=== PATIENT | female | born 1945 | race Caucasian/White ===

== ENCOUNTER 2019-05-14 22:09 | Outpatient (CLI) | payer MEDICARE, OTHER | END 2019-05-14 22:10 | disposition critical access hospital (66) | LOC: EMS 22:09 | PROVIDERS: ATTEND Surgery | DX: M54.2 Cervicalgia (principal); W18.39XA Other fall on same level, initial encounter; Y93.E2 Activity, laundry; Y92.008 Other place in unspecified non-institutional (private) residence as the place of occurrence of the external cause | CPT/HCPCS: A0425; A0429 ==

== ENCOUNTER 2019-05-14 22:28 | Emergency (ER) | payer MEDICARE, OTHER ==
[2019-05-14] MEDS ORDERED: HYDROcod/ACETAM 5/325 MG TABLET PO STA (22:38)
--- NOTE | 2019-05-14 22:42 | ED Physician Documentation ---
PD HPI Fall - Stated complaint Stated Complaint: FALL/HEAD PAIN - Chief complaint Chief Complaint: Trauma Hd/Nk - History obtained from History obtained from: Patient, Family, EMS - History of Present Illness Mechanism of injury: Lost balance (She was sitting on her walker folding laundry and lost balance and fell backwards. She struck the back of her head. She is complaining of pain in the neck and upper thoracic area. 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 No: LOC, AMS, Weakness, Paresthesias Worsens with: Movement, Palpation Contributing factors: Anticoagulated. No: Intoxicated Recently seen: Not recently seen Review of Systems Constitutional: denies: Fever, Chills Eyes: denies: Loss of vision, Decreased vision Nose: denies: Rhinorrhea / runny nose, Congestion Throat: denies: Sore throat Cardiac: denies: Chest pain / pressure Respiratory: denies: Cough GI: denies: Abdominal Pain Skin: denies: Abrasion (s), Laceration (s) Musculoskeletal: reports: Neck pain, Back pain (upper thoracic area) Neurologic: denies: Focal weakness, Numbness, Altered mental status PD PAST MEDICAL HISTORY - Past Medical History Cardiovascular: Atrial fibrillation Respiratory: None Neuro: None Endocrine/Autoimmune: None - Present Medications Home Medications: Ambulatory Orders Medication Instructions Recorded Confirmed Hydrocodone/Acetaminophen [[place] 1 each PO Q6H PRN #15 tablet 05/14/19 5-325 Tablet] Methocarbamol [Robaxin] 500 mg PO TID PRN #20 tablet 05/14/19 - Allergies Allergies/Adverse Reactions: Allergies Allergy/AdvReac Type Severity Reaction Status Date / Time azithromycin Allergy Rash Verified 05/14/19 22:50 glyburide Allergy Edema Verified 05/14/19 22:50 levofloxacin Allergy Hives Verified 05/14/19 22:50 lisinopril Allergy Respiratory Verified 05/14/19 22:50 losartan Allergy Hives Verified 05/14/19 22:50 metformin Allergy Cramps Verified 05/14/19 22:50 Sulfa (Sulfonamide Allergy Rash Verified 05/14/19 22:50 Antibiotics) triamcinolone Allergy Itching Verified 05/14/19 22:50 trimethoprim Allergy Rash Verified 05/14/19 22:50 yellow dye Allergy Rash Verified 05/14/19 22:50 PD ED PE NORMAL - Vitals Vital signs reviewed: Yes - General General: Alert and oriented X 3, No acute distress (appears uncomfortable due to collar more than injury per se. ), Well developed/nourished - HEENT HEENT: PERRL, EOMI, Pharynx benign, Other (back of head with swelling and tednerness right occiput. It is not tense, but is swollen. No lacerations. ) - Neck Neck: Supple, no meningeal sign, No adenopathy, Other (some tenderness mid to lower cervical area down to upper thoracic, more to the right muscles. 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 ), See rad report PD MEDICAL DECISION MAKING - ED course Complexity details: reviewed results (NO ICH and no fractures), re-evaluated patient (She is feeling much improved with time and just PO meds. ), considered differential (Low suspicion for fracture/spine injury. Will get CTs to ensure okay. To get CT head, given she is on anticoag. ), d/w patient Departure - Departure Disposition: 01 Home, Self Care Clinical Impression: Anticoagulant long-term use Fall, accidental Qualifiers: Encounter type: initial encounter Qualified Code(s): W19.XXXA - Unspecified fall, initial encounter Contusion of occipital region of scalp Qualifiers: Encounter type: initial encounter Qualified Code(s): S00.03XA - Contusion of sc alp, initial encounter Neck muscle strain Qualifiers: Encounter type: initial encounter Qualified Code(s): S16.1XXA - Strain of muscle, fascia and tendon at neck level, initial encounter Condition: Stable Record reviewed to determine appropriate education?: Yes Instructions: ED Contusion Scalp, ED Sprain Strain Neck Prescriptions: Hydrocodone/Acetaminophen [[place] 5-325 Tablet] 1 each PO Q6H PRN #15 tablet PRN Reason: Pain Methocarbamol [Robaxin] 500 mg PO TID PRN #20 tablet PRN Reason: Spasms Comments: Tylenol 650 mg 4 times a day for the next several days for pain. Add hydrocodone if needed for worse pain. You likely be sore and stiff over the next few days from the injury. Your scan pictures are good without any signs of fracture or intracranial bleeding. The hematoma in the scalp should decrease slowly over several days to a couple of weeks. Recheck if it is not resolved over a week or 2 Discharge Date/Time: 05/15/19 00:02
--- NOTE | 2019-05-14 23:22 | CT Report ---
Reason: fell and hit head/neck; on Eliquis Procedure Date: 05/14/2019 Accession Number: [id number] / [id number] Procedure: CT - HEAD WO CPT Code: FULL RESULT: EXAM: CT HEAD EXAM DATE: 05/14/2019 11:07 PM CLINICAL HISTORY: Fell and hit head/neck; on Eliquis. COMPARISON: CERVICAL SPINE W/O 05/14/2019 10:56 PM. TECHNIQUE: Multiaxial CT images were obtained from the foramen magnum to the vertex. Reformats: Sagittal and coronal. IV contrast: None. In accordance with CT protocol optimization, one or more of the following dose reduction techniques were utilized for this exam: automated exposure control, adjustment of mA and/or KV based on patient size, or use of iterative reconstructive technique. FINDINGS: Parenchyma: No intraparenchymal hemorrhage. No evidence of mass, midline shift or CT findings of acute infarction. Cortes-white differentiation is distinct. Diffuse mild chronic microangiopathic white matter changes are evident. Extraaxial Spaces: Normal for age. No subdural or epidural collections identified. Ventricles: The ventricles and cortical sulci are enlarged, consistent with age-related tissue loss. Sinuses: Imaged paranasal sinuses, orbits, and mastoids show no significant abnormality. Bones: No evidence of fracture or calvarial defect. Other: Small right occipital scalp hematoma. IMPRESSION: Mild senescent changes without evidence of acute intracranial abnormality. RADIA
--- NOTE | 2019-05-14 23:26 | CT Report ---
Reason: fell and hit head/neck; on Eliquis Procedure Date: 05/14/2019 Accession Number: [id number] / [id number] Procedure: CT - CERVICAL SPINE WO CPT Code: FULL RESULT: EXAM: CT CERVICAL SPINE WITHOUT CONTRAST DATE: 05/14/2019 11:07 PM. HISTORY: Fell and hit head/neck; pain, on Eliquis. COMPARISONS: None. TECHNIQUE: Thin-section axial images were acquired of the cervical spine without contrast. Post-processing: Coronal and sagittal reformats. Other: None. In accordance with CT protocol optimization, one or more of the following dose reduction techniques were utilized for this exam: automated exposure control, adjustment of mA and/or KV based on patient size, or use of iterative reconstructive technique. FINDINGS: Alignment: No scoliosis or spondylolisthesis. Bones: Osteopenia. No acute fracture seen. Interspace Levels/Facets: C1-C2: Degenerative changes between the anterior arch of C1 and the odontoid. C2-C3: Mild degenerative disk disease with mild broad-based disk bulge. Degenerative joint disease in the right facet joint. Mild right foraminal stenosis. C3-C4: Moderate degenerative disk disease. Bilateral uncovertebral joint spurring. C4-C5: Mild degenerative disk disease. C5-C6: Moderate to severe degenerative disk disease. Posterior disk osteophyte complex contacting the cord. Bilateral uncovertebral joint osteophytes with severe bilateral foraminal stenosis. C6-C7: Moderate to severe degenerative disk disease. Posterior disk osteophyte complex contacting the cord, left worse than right. Bilateral uncovertebral joint spurring with mild right and moderate to severe left foraminal stenosis. C7-T1: Moderate to severe degenerative disk disease. Posterior disk osteophyte complex contacting the cord. Bilateral uncovertebral joint spurring with moderate right and severe left foraminal stenosis. Musculature: Atrophy consistent with age. Other: No prevertebral soft tissue swelling. The lung apices are clear. Tracheomalacia is noted. IMPRESSION: 1. No acute cervical spine abnormality. 2. Multilevel degenerative disk disease and degenerative joint disease as noted. RADIA
--- NOTE | 2019-05-14 23:29 | CT Report ---
Reason: fell and hit head/neck; on Eliquis Procedure Date: 05/14/2019 Accession Number: [id number] / [id number] Procedure: CT - THORACIC SPINE WO CPT Code: FULL RESULT: EXAM: CT THORACIC SPINE WITHOUT CONTRAST EXAM DATE: 05/14/2019 11:07 PM. CLINICAL HISTORY: Pain after injury. On blood thinner. COMPARISONS: None. TECHNIQUE: Thin-section axial images were acquired of the thoracic spine without contrast. Post-processing: Coronal and sagittal reformats. Other: None. In accordance with CT protocol optimization, one or more of the following dose reduction techniques were utilized for this exam: automated exposure control, adjustment of mA and/or KV based on patient size, or use of iterative reconstructive technique. FINDINGS: Alignment: Unremarkable. Bones: Osteopenia. No acute fracture seen. Disk Levels/Facets: Mild multilevel degenerative disk disease. Bulky bridging osteophytes at multiple levels, right greater than left. Facet joints appear intact. Other: The visualized lungs appear clear. Coronary artery calcifications. IMPRESSION: 1. Osteopenia and degenerative changes. 2. No acute thoracic spine abnormality. RADIA
[2019-05-15 00:13] VITALS: BP 117/76
== END 2019-05-15 00:02 | disposition home or self-care (01) ==
LOC: EDBD → ED 22:28
DX: S16.1XXA Strain of muscle, fascia and tendon at neck level, initial encounter (principal); S00.03XA Contusion of scalp, initial encounter; M54.6 Pain in thoracic spine; W17.89XA Other fall from one level to another, initial encounter; Y93.E2 Activity, laundry; Y92.29 Other specified public building as the place of occurrence of the external cause; M47.812 Spondylosis without myelopathy or radiculopathy, cervical region; M50.31 Other cervical disc degeneration, high cervical region; M85.88 Other specified disorders of bone density and structure, other site; I48.91 Unspecified atrial fibrillation; Z79.01 Long term (current) use of anticoagulants
CPT/HCPCS: 70450; 72125; 72128; 99283; 99284; A9270

== ENCOUNTER 2019-05-15 12:41 | Outpatient (CLI) | payer MEDICARE, OTHER | END 2019-05-15 12:42 | disposition EMS.NT | LOC: EMS 12:41 | PROVIDERS: ATTEND Surgery | DX: R51 Headache (principal) ==

== ENCOUNTER 2019-06-21 16:32 | Outpatient (CLI) | payer MEDICARE, OTHER ==
[2019-06-21 17:01] LABS: BASOPHILS # (AUTO) 0.1 10^3/uL (0.0-0.1); BASOPHILS % (AUTO) 0.5 %; EOSINOPHILS # (AUTO) 0.1 10^3/uL (0.0-0.7); EOSINOPHILS % (AUTO) 0.9 %; HGB - HEMOGLOBIN 16.1 g/dL (12.0-16.0); LYMPHOCYTES # (AUTO) 2.3 10^3/uL (1.5-3.5); LYMPHOCYTES % (AUTO) 21.9 %; MEAN CORPUSCULAR HEMOGLOBIN 31.9 pg (27.0-31.0); MEAN CORPUSCULAR HGB CONC 32.3 g/dL (32.0-36.0); MEAN CORPUSCULAR VOLUME 98.8 fL (81.0-99.0); NEUTROPHILS # (AUTO) 7.2 10^3/uL (1.5-6.6); NEUTROPHILS % (AUTO) 67.1 %; PLT - PLATELET COUNT 224 10^3/uL (130-450); RED BLOOD COUNT 5.05 10^6/uL (4.20-5.40); RED CELL DISTRIBUTION WIDTH 13.2 % (12.0-15.0); WHITE BLOOD COUNT 10.7 x10^3/uL (4.8-10.8)
[2019-06-21 17:12] LABS: CREATININE,URINE 106.8 mg/dL; MICROALBUM/CREATININE RATIO,UR 16.9 ug/mg (<30.0); MICROALBUMIN,URINE 1.8 mg/dL (0-300.0)
[2019-06-21 17:37] LABS: HB2 TOTAL 15.7 g/dL; HEMOGLOBIN A1C 1.3 g/dL; HEMOGLOBIN A1C % 9.7 % (4.6-6.2)
[2019-06-21 17:40] LABS: BUN - BLOOD UREA NITROGEN 27 mg/dL (6-20); CALCIUM 9.2 mg/dL (8.5-10.3); CARBON DIOXIDE - CO2 28 mmol/L (21-32); CHLORIDE 99 mmol/L (101-111); CHOL/HDL RATIO 2.5 (<4.4); CHOLESTEROL 114 mg/dL; CREATININE 1.1 mg/dL (0.4-1.0); GFR - MDRD 49 (>89); GLUCOSE 244 mg/dL (70-100); HDL CHOLESTEROL 46 mg/dL; LDL CHOLESTEROL,CALCULATED 55 mg/dL; LDL/HDL RATIO 1.2 (<4.4); SODIUM 140 mmol/L (135-145); VLDL CHOLESTEROL 13 mg/dL
[2019-06-23 16:45] LABS: FREE T4 (FREE THYROXINE) 0.53 ng/dL (0.58-1.64)
== END 2019-06-21 16:33 | disposition home or self-care (01) ==
LOC: LAB 16:32
PROVIDERS: ATTEND Family Medicine
DX: I50.9 Heart failure, unspecified (principal); E78.5 Hyperlipidemia, unspecified; E11.9 Type 2 diabetes mellitus without complications; E03.9 Hypothyroidism, unspecified
CPT/HCPCS: 36415; 80048; 80061; 82043; 82570; 83036; 83721; 83880; 84439; 84443; 85025

== ENCOUNTER 2019-09-16 14:20 | Outpatient (CLI) | payer MEDICARE, OTHER ==
[2019-09-16 15:11] LABS: BASOPHILS % (AUTO) 0.5 %; EOSINOPHILS # (AUTO) 0.2 10^3/uL (0.0-0.7); EOSINOPHILS % (AUTO) 2.1 %; HGB - HEMOGLOBIN 15.5 g/dL (12.0-16.0); LYMPHOCYTES # (AUTO) 1.5 10^3/uL (1.5-3.5); LYMPHOCYTES % (AUTO) 19.7 %; MEAN CORPUSCULAR HEMOGLOBIN 31.2 pg (27.0-31.0); MEAN CORPUSCULAR VOLUME 97.6 fL (81.0-99.0); MEAN PLATELET VOLUME 10.7 fL (7.9-10.8); MONOCYTES # (AUTO) 0.9 10^3/uL (0.0-1.0); MONOCYTES % (AUTO) 11.2 %; NEUTROPHILS # (AUTO) 5.1 10^3/uL (1.5-6.6); NEUTROPHILS % (AUTO) 66.1 %; PLT - PLATELET COUNT 226 10^3/uL (130-450); RED BLOOD COUNT 4.97 10^6/uL (4.20-5.40); RED CELL DISTRIBUTION WIDTH 13.1 % (12.0-15.0); WHITE BLOOD COUNT 7.8 x10^3/uL (4.8-10.8)
[2019-09-16 15:31] LABS: ALBUMIN 3.8 g/dL (3.2-5.5); CALCIUM 9.2 mg/dL (8.5-10.3); CREATININE 1.2 mg/dL (0.4-1.0); TOTAL PROTEIN 7.8 g/dL (6.7-8.2)
[2019-09-16 15:37] LABS: HEMOGLOBIN A1C 1.36 g/dL; HEMOGLOBIN A1C % 9.9 % (4.6-6.2)
[2019-09-16 16:13] LABS: FREE T4 (FREE THYROXINE) 0.65 ng/dL (0.58-1.64)
[2019-09-17 12:27] LABS: HEPATITIS C ANTIBODY NON-REACTIVE (NON-REACTIVE)
== END 2019-09-16 14:21 | disposition home or self-care (01) ==
LOC: LAB 14:20
PROVIDERS: ATTEND Physician Assistant
DX: E11.22 Type 2 diabetes mellitus with diabetic chronic kidney disease (principal); N18.3 Chronic kidney disease, stage 3 (moderate); E03.9 Hypothyroidism, unspecified; L40.0 Psoriasis vulgaris
CPT/HCPCS: 36415; 80053; 81599; 83036; 84439; 84443; 85025; 86317; 86803; 87389

== ENCOUNTER 2019-10-03 14:22 | Outpatient (CLI) | payer MEDICARE, OTHER ==
[2019-10-03 15:35] LABS: HGB - HEMOGLOBIN 16.1 g/dL (12.0-16.0); MEAN CORPUSCULAR HEMOGLOBIN 31.9 pg (27.0-31.0); MEAN CORPUSCULAR VOLUME 96.6 fL (81.0-99.0); MEAN PLATELET VOLUME 10.8 fL (7.9-10.8); RED BLOOD COUNT 5.05 10^6/uL (4.20-5.40); RED CELL DISTRIBUTION WIDTH 13.1 % (12.0-15.0); WHITE BLOOD COUNT 7.5 x10^3/uL (4.8-10.8)
[2019-10-03 15:51] LABS: CREATININE 1.1 mg/dL (0.4-1.0)
== END 2019-10-03 14:23 | disposition home or self-care (01) ==
LOC: LAB 14:22
PROVIDERS: ATTEND Physician Assistant
DX: I50.9 Heart failure, unspecified (principal); L40.0 Psoriasis vulgaris
CPT/HCPCS: 36415; 80048; 81599; 83880; 85027; 86480

== ENCOUNTER 2020-01-25 11:14 | Outpatient (CLI) | payer MEDICARE, OTHER | END 2020-01-26 11:15 | disposition critical access hospital (66) | LOC: EMS 11:14 | PROVIDERS: ATTEND Surgery | DX: R06.00 Dyspnea, unspecified (principal); R07.89 Other chest pain | CPT/HCPCS: A0425; A0429 ==

== ENCOUNTER 2020-01-25 11:29 | Emergency (ER) | payer MEDICARE, OTHER ==
[2020-01-25] MEDS ORDERED: FUROSEMIDE 40 MG/4 ML VIAL IVP STA (12:22)
--- NOTE | 2020-01-25 12:57 | XRAY Report ---
PROCEDURE: Chest 1 View X-Ray INDICATIONS: soa TECHNIQUE: One view of the chest was acquired. COMPARISON: None FINDINGS: Surgical changes and devices: None. Lungs and pleura: No pleural effusions or pneumothorax. Lungs are clear. Mediastinum: Mediastinal contours appear normal. Heart size is normal. Bones and chest wall: No suspicious bony lesions. Overlying soft tissues appear unremarkable. IMPRESSION: No evidence acute pulmonary process. Reviewed by: Trever Busby MD on 01/25/2020 11:55 AM [facility]ATE Approved by: Trever Busby MD on 01/25/2020 11:55 AM CUATE Station ID: [id number]
[2020-01-25 13:10] LABS: BASOPHILS % (AUTO) 0.4 %; EOSINOPHILS # (AUTO) 0.2 10^3/uL (0.0-0.7); EOSINOPHILS % (AUTO) 2.2 %; HGB - HEMOGLOBIN 14.3 g/dL (12.0-16.0); LYMPHOCYTES # (AUTO) 1.8 10^3/uL (1.5-3.5); LYMPHOCYTES % (AUTO) 25.7 %; MEAN CORPUSCULAR HEMOGLOBIN 30.9 pg (27.0-31.0); MEAN CORPUSCULAR HGB CONC 31.8 g/dL (32.0-36.0); MEAN CORPUSCULAR VOLUME 97.2 fL (81.0-99.0); MEAN PLATELET VOLUME 11.2 fL (7.9-10.8); MONOCYTES # (AUTO) 0.7 10^3/uL (0.0-1.0); MONOCYTES % (AUTO) 9.5 %; NEUTROPHILS # (AUTO) 4.2 10^3/uL (1.5-6.6); NEUTROPHILS % (AUTO) 61.6 %; PLT - PLATELET COUNT 153 10^3/uL (130-450); RED BLOOD COUNT 4.63 10^6/uL (4.20-5.40); RED CELL DISTRIBUTION WIDTH 13.1 % (12.0-15.0); WHITE BLOOD COUNT 6.8 x10^3/uL (4.8-10.8)
--- NOTE | 2020-01-25 13:13 | ED Physician Documentation ---
PD HPI DYSPNEA - Stated complaint Stated Complaint: CHF - Chief complaint Chief Complaint: Cardiac - History obtained from History obtained from: Patient - History of Present Illness Timing - onset: How many weeks ago (3) Timing - onset during: Rest Timing - duration: Weeks (3) Timing - details: Gradual onset, Still present, Waxing and waning Improved by: Lasix, Rest, Sitting up Worsened by: Exertion, Laying flat, Coughing Associated symptoms: Cough, Bilateral edema. No: Fever Similar symptoms before: Diagnosis (CHF) Recently seen: Not recently seen - Additional information Additional information: 72-year-old female with a history of congestive heart failure and type 2 diabetes is on Jardiance and torsemide. She has had increased swelling in her extremities and increased dyspnea. She has some paroxysmal nocturnal dyspnea which has worsened over the past 3 weeks. Today she had an episode of dyspnea and called the ambulance. In route she was administered a DuoNeb treatment with minimal improvement she was placed on the oxygen she arrives to the emergency department feeling the ease of breathing.She indicates that her legs are a bit more swollen than usual they are red but but not different from normal over the past 6 months. She does not otherwise feel ill. Review of Systems Constitutional: denies: Fever, Chills, Myalgias Eyes: denies: Decreased vision Ears: denies: Ear pain Nose: denies: Rhinorrhea / runny nose, Congestion Throat: denies: Sore throat Cardiac: denies: Chest pain / pressure, Palpitations Respiratory: reports: Dyspnea. denies: Cough, Wheezing GI: denies: Abdominal Pain, Nausea, Vomiting : reports: Frequency. denies: Dysuria Musculoskeletal: reports: Extremity swelling. denies: Neck pain, Back pain, Extremity pain Neurologic: denies: Generalized weakness, Focal weakness, Numbness PD PAST MEDICAL HISTORY - Past Medical History Past Medical History: Yes Cardiovascular: Atrial fibrillation Respiratory: None Neuro: None Endocrine/Autoimmune: None GI: GERD HEENT: None - Past Surgical History Past Surgical History: Yes - Present Medications Home Medications: Ambulatory Orders Medication Instructions Recorded Confirmed Hydrocodone/Acetaminophen [[place] 1 each PO Q6H PRN #15 tablet 05/14/19 01/25/20 5-325 Tablet] methocarbamoL [Robaxin] 500 mg PO TID PRN #20 tablet 05/14/19 01/25/20 Empagliflozin [Jardiance] 1 tab PO DAILY 01/25/20 01/25/20 Furosemide [Lasix] 40 mg PO DAILY #20 tablet 01/25/20 Gabapentin 2 cap PO BID 01/25/20 01/25/20 Insulin Aspart (Vial) [NovoLOG 1 unit SQ PRN PRN 01/25/20 01/25/20 (VIAL FOR ED USE)] Metoprolol Succinate 1 tab PO DAILY 01/25/20 01/25/20 Montelukast [Singulair] 1 tab PO DAILY PM 01/25/20 01/25/20 Omeprazole 1 cap PO DAILY 01/25/20 01/25/20 Oxybutynin Chloride [Oxybutynin 1 tab PO DAILY 01/25/20 01/25/20 Chloride ER] Potassium Citrate [Potassium 2 tab PO DAILY 01/25/20 01/25/20 Citrate ER] Thyroid,Pork [[place] Thyroid] 1 tab PO DAILY 01/25/20 01/25/20 Torsemide 1 tab PO DAILY 01/25/20 01/25/20 methocarbamoL [Methocarbamol] 1 tab PO PRN PRN 01/25/20 01/25/20 - Allergies Allergies/Adverse Reactions: Allergies Allergy/AdvReac Type Severity Reaction Status Date / Time azithromycin Allergy Rash Verified 01/25/20 11:42 glyburide Allergy Edema Verified 01/25/20 11:42 levofloxacin Allergy Hives Verified 01/25/20 11:42 lisinopril Allergy Respiratory Verified 01/25/20 11:42 losartan Allergy Hives Verified 01/25/20 11:42 metformin Allergy Cramps Verified 01/25/20 11:42 Sulfa (Sulfonamide Allergy Rash Verified 01/25/20 11:42 Antibiotics) triamcinolone Allergy Itching Verified 01/25/20 11:42 trimethoprim Allergy Rash Verified 01/25/20 11:42 yellow dye Allergy Rash Verified 01/25/20 11:42 - Social History Does the pt smoke?: No Smoking Status: Never smoker Does the pt drink ETOH?: No Does the pt have substance abuse?: No - Immunizations Immunizations are current?: Yes - POLST Patient has POLST: No PD ED PE NORMAL - Vitals Vital signs reviewed: Yes (hypertensive) - HEENT HEENT: Atraumatic, PERRL, EOMI - Neck Neck: Supple, no meningeal sign - Cardiac Cardiac: RRR, No murmur - Respiratory Respiratory: No respiratory distress, Clear bilaterally - Abdomen Abdomen: Soft, Non tender, Other (obese) - Back Back: No CVA TTP, No spinal TTP - Derm Derm: Normal color, Warm and dry, No rash - Extremities Extremities: No deformity, No calf tenderness / cord, Other (There is pitting edema bilaterally to the upper calf and there is erythema across the lower margins of the calves bilaterally which is hyperemic and blanching.) - Neuro Neuro: Alert and oriented X 3, 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, No motor deficit, No sensory deficit, Normal speech Eye Opening: Spontaneous Motor: Obeys Commands Verbal: Oriented GCS Score: 15 - Psych Psych: Normal mood, Normal affect Results - Vitals Vitals: Vital Signs - 24 hr 01/25/20 01/25/20 01/25/20 11:26 11:39 14:54 Temperature 36.4 C L Heart Rate 66 61 58 L Respiratory 24 22 16 Rate Blood Pressure 156/57 H 156/67 H 150/68 H O2 Saturation 97 96 97 Oxygen O2 Source Room air - EKG (time done) 1136 Rate: Rate (enter#) (61) Rhythm: Other (sinus arrythmia) QRS: Low voltage Ischemia: Non specific changes (minimal ST depression V4/5) Compare to prior EKG: Old EKG unavailable Computer interpretation: Agree with computer - Labs Labs: Laboratory Tests 01/25/20 01/25/20 01/25/20 13:00 13:00 13:00 WBC 6.8 RBC 4.63 Hgb 14.3 Hct 45.0 MCV 97.2 MCH 30.9 MCHC 31.8 L RDW 13.1 Plt Count 153 MPV 11.2 H Neut # (Auto) 4.2 Lymph # (Auto) 1.8 [place] # (Auto) 0.7 Eos # (Auto) 0.2 Baso # (Auto) 0.0 Absolute Nucleated RBC 0.00 Nucleated RBC % 0.0 VBG pH VBG pCO2 VBG pO2 VBG HCO3 VBG Total CO2 VBG O2 Saturation VBG Base Excess Sodium 136 Potassium 4.0 Chloride 99 L Carbon Dioxide 26 Anion Gap 11.0 BUN 21 H Creatinine 0.9 Estimated GFR (MDRD) 62 L Glucose 214 H Lactic Acid Calcium 9.1 Total Bilirubin 2.3 H AST 22 ALT 17 Alkaline Phosphatase 96 Troponin I High Sens B-Natriuretic Peptide 112 H Total Protein 7.5 Albumin 3.4 Globulin 4.1 Albumin/Globulin Ratio 0.8 L Lipase 27 Urine Color Urine Clarity Urine pH Ur Specific [place] Urine Protein Urine Glucose (UA) Urine Ketones Urine Occult Blood Urine Nitrite Urine Bilirubin Urine Urobilinogen Ur Leukocyte Esterase Ur Microscopic Review Urine Culture Comments Serum Ketones 01/25/20 01/25/20 01/25/20 13:00 13:00 13:08 WBC RBC Hgb Hct MCV MCH MCHC RDW Plt Count MPV Neut # (Auto) Lymph # (Auto) [place] # (Auto) Eos # (Auto) Baso # (Auto) Absolute Nucleated RBC Nucleated RBC % VBG pH VBG pCO2 VBG pO2 VBG HCO3 VBG Total CO2 VBG O2 Saturation VBG Base Excess Sodium Potassium Chloride Carbon Dioxide Anion Gap BUN Creatinine Estimated GFR (MDRD) Glucose Lactic Acid 1.7 Calcium Total Bilirubin AST ALT Alkaline Phosphatase Troponin I High Sens 7.6 B-Natriuretic Peptide Total Protein Albumin Globulin Albumin/Globulin Ratio Lipase Urine Color YELLOW Urine Clarity CLEAR Urine pH 6.0 Ur Specific [place] 1.015 Urine Protein NEGATIVE Urine Glucose (UA) >=1000 H Urine Ketones 15 H Urine Occult Blood NEGATIVE Urine Nitrite NEGATIVE Urine Bilirubin NEGATIVE Urine Urobilinogen 0.2 (NORMAL) Ur Leukocyte Esterase NEGATIVE Ur Microscopic Review NOT INDICATED Urine Culture Comments NOT INDICATED Serum Ketones 01/25/20 01/25/20 14:08 14:08 WBC RBC Hgb Hct MCV MCH MCHC RDW Plt Count MPV Neut # (Auto) Lymph # (Auto) [place] # (Auto) Eos # (Auto) Baso # (Auto) Absolute Nucleated RBC Nucleated RBC % VBG pH 7.455 H VBG pCO2 39.2 L VBG pO2 44.4 VBG HCO3 26.9 VBG Total CO2 28.1 VBG O2 Saturation 83.5 H VBG Base Excess 3.0 H Sodium Potassium Chloride Carbon Dioxide Anion Gap BUN Creatinine Estimated GFR (MDRD) Glucose Lactic Acid Calcium Total Bilirubin AST ALT Alkaline Phosphatase Troponin I High Sens B-Natriuretic Peptide Total Protein Albumin Globulin Albumin/Globulin Ratio Lipase Urine Color Urine Clarity Urine pH Ur Specific [place] Urine Protein Urine Glucose (UA) Urine Ketones Urine Occult Blood Urine Nitrite Urine Bilirubin Urine Urobilinogen Ur Leukocyte Esterase Ur Microscopic Review Urine Culture Comments Serum Ketones NEGATIVE - Rads (name of study) chest Radiology: Prelim report reviewed (Impression: No acute pulmonary process.), EMP read indepedently, See rad report Procedures - IVC sono (time) 1208 Bedside IVC sono: IVC measures (cm) (2.53), High CVP, Fluid overload PD MEDICAL DECISION MAKING - ED course Complexity details: reviewed old records, reviewed results, re-evaluated patient, considered differential, d/w patient ED course: 74-year-old female with a history of congestive failure is presenting with increased symptoms of nocturnal dyspnea and she is found to be volume overloaded on interrogation of the inferior vena cava and she is administered Lasix 40 mg intravenously. Her CXR and her BNP are underwhelming but she has improvement with treatment. I have encouraged her to do daily weights, take 40mg of lasix in addition to her torsamide and to followup with her primary in 7-10 days. She would likely benefit from CHF education at the hospital. Departure - Departure Disposition: 01 Home, Self Care Clinical Impression: Congestive heart failure Qualifiers: Heart failure type: unspecified Heart failure chronicity: acute on chronic Qualified Code(s): I50.9 - Heart failure, unspecified Condition: Stable Instructions: ED CHF General Follow-Up: Nelson Bustamante MD [Provider Admit Priv/Credential] - Prescriptions: Furosemide [Lasix] 40 mg PO DAILY #20 tablet Discharge Date/Time: 01/25/20 15:01
[2020-01-25 13:28] LABS: BILIRUBIN,URINE NEGATIVE (NEGATIVE); GLUCOSE, URINE (UA) >=1000 mg/dL (NEGATIVE); KETONES,URINE (UA) 15 mg/dL (NEGATIVE); LEUKOCYTE ESTERASE, URINE NEGATIVE (NEGATIVE); NITRITE,URINE NEGATIVE (NEGATIVE); OCCULT BLOOD,URINE NEGATIVE (NEGATIVE); PROTEIN,URINE NEGATIVE (NEGATIVE); UROBILINOGEN,URINE 0.2 (NORMAL) E.U./dL (NORMAL)
[2020-01-25 13:29] LABS: CLARITY,URINE CLEAR (CLEAR)
[2020-01-25 13:30] LABS: ALBUMIN 3.4 g/dL (3.2-5.5); ALBUMIN/GLOBULIN RATIO 0.8 (1.0-2.2); BILIRUBIN,TOTAL 2.3 mg/dL (0.2-1.0); CALCIUM 9.1 mg/dL (8.5-10.3); CREATININE 0.9 mg/dL (0.4-1.0); TOTAL PROTEIN 7.5 g/dL (6.7-8.2)
[2020-01-25 14:15] LABS: VBG PCO2 39.2 mmHg (41-51); VBG PH 7.455 (7.31-7.41); VBG PO2 44.4 mmHg (25-47); VBG TOTAL CO2 28.1 mmol/L (24-29)
[2020-01-25 14:54] VITALS: BP 150/68
== END 2020-01-25 15:01 | disposition home or self-care (01) ==
LOC: EDUNIT# → ED 11:29
DX: I50.9 Heart failure, unspecified (principal); E11.9 Type 2 diabetes mellitus without complications; Z79.4 Long term (current) use of insulin
CPT/HCPCS: 36415; 71045; 80053; 81001; 81003; 82009; 82803; 83605; 83690; 83880; 84484; 85025; 87086; 93005; 96374; 99284

== ENCOUNTER 2020-05-25 16:32 | Outpatient (CLI) | payer MEDICARE, OTHER ==
[2020-05-25 18:56] LABS: ALBUMIN 3.9 g/dL (3.2-5.5); ALBUMIN/GLOBULIN RATIO 0.9 (1.0-2.2); BILIRUBIN,TOTAL 2.2 mg/dL (0.2-1.0); CALCIUM 9.3 mg/dL (8.5-10.3); CREATININE 1.1 mg/dL (0.4-1.0); TOTAL PROTEIN 8.1 g/dL (6.7-8.2)
[2020-05-25 19:31] LABS: HEMOGLOBIN A1c% 9.2 % (4.27-6.07)
== END 2020-05-25 23:59 | disposition home or self-care (01) ==
LOC: LAB.WCP 16:32
PROVIDERS: ATTEND Family Medicine
DX: I13.0 Hypertensive heart and chronic kidney disease with heart failure and stage 1 through stage 4 chronic kidney disease, or unspecified chronic kidney disease (principal); E11.22 Type 2 diabetes mellitus with diabetic chronic kidney disease; I50.9 Heart failure, unspecified; N18.30 Chronic kidney disease, stage 3 unspecified
CPT/HCPCS: 36415; 80053; 82043; 82570; 83036

== ENCOUNTER 2020-08-31 08:00 | Outpatient (CLI) | payer MEDICARE, OTHER ==
[2020-09-01 12:58] LABS: BILIRUBIN,URINE NEGATIVE (NEGATIVE); CLARITY,URINE CLEAR (CLEAR); GLUCOSE, URINE (UA) 500 mg/dL (NEGATIVE); KETONES,URINE (UA) NEGATIVE (NEGATIVE); LEUKOCYTE ESTERASE, URINE NEGATIVE (NEGATIVE); NITRITE,URINE NEGATIVE (NEGATIVE); OCCULT BLOOD,URINE NEGATIVE (NEGATIVE); PH,URINE 5.5 PH (5.0-7.5); PROTEIN,URINE NEGATIVE (NEGATIVE); UROBILINOGEN,URINE 0.2 (NORMAL) E.U./dL (NORMAL)
[2020-09-01 13:02] LABS: BACTERIA,URINE Rare /HPF (None Seen); RBC,URINE 0-5 /HPF (0-5); SQUAMOUS EPITHELIAL CELL,UR FEW Squamous (<= Few); YEAST,URINE PRESENT
== END 2020-08-31 23:59 | disposition home or self-care (01) ==
LOC: LAB.R 08:00
PROVIDERS: ATTEND Obstetrics & Gynecology
DX: R32 Unspecified urinary incontinence (principal)
CPT/HCPCS: 81001; 87086

== ENCOUNTER 2021-01-21 14:34 | Emergency (ER) | payer MEDICARE, OTHER ==
--- NOTE | 2021-01-21 15:16 | ED Physician Documentation ---
PD HPI ABD PAIN - Stated complaint Stated Complaint: BACK/ABD PX - Chief complaint Chief Complaint: Abd Pain - History obtained from History obtained from: Patient - Additional information Additional information: She has had ongoing and subacute back problems. Over the last month or so she has had more severe back pain and less acutely has developed abdominal cramps. The abdominal cramps were particularly bad in the right lower quadrant last night. Initially states she has had no abdominal surgeries but when I mention the possibility of appendicitis she recalled that she had a remote appendectomy as a child. Pain does not get worse after eating, she does note intermittent chronic diarrhea. Denies fevers or weight loss. Declines pain medication on initial evaluation. There is no associated nausea currently but she was nauseous a few nights ago which she thinks is unrelated. Review of Systems Ten Systems: 10 systems reviewed and negative Constitutional: denies: Fever, Chills Throat: reports: Reviewed and negative Cardiac: reports: Reviewed and negative Respiratory: reports: Reviewed and negative PD PAST MEDICAL HISTORY - Past Medical History Cardiovascular: Congestive heart failure, Hypertension, High cholesterol, Atrial fibrillation Respiratory: COPD Neuro: None Endocrine/Autoimmune: None GI: GERD : Nocturia, Frequency HEENT: None Musculoskeletal: Osteoarthritis Derm: Psoriasis - Past Surgical History Past Surgical History: Yes - Present Medications Home Medications: Ambulatory Orders Medication Instructions Recorded Confirmed Hydrocodone/Acetaminophen [[place] 1 each PO Q6H PRN #15 tablet 05/14/19 03/24/20 5-325 Tablet] methocarbamoL [Robaxin] 500 mg PO TID PRN #20 tablet 05/14/19 03/24/20 Empagliflozin [Jardiance] 1 tab PO DAILY 01/25/20 03/24/20 Furosemide [Lasix] 40 mg PO DAILY #20 tablet 01/25/20 Gabapentin 2 cap PO BID 01/25/20 03/24/20 Insulin Aspart (Vial) [NovoLOG 8 - 14 unit SQ TIDWM 01/25/20 03/24/20 (VIAL FOR ED USE)] Metoprolol Succinate 1 tab PO DAILY 01/25/20 03/24/20 Montelukast [Singulair] 1 tab PO DAILY PM 01/25/20 03/24/20 Omeprazole 1 cap PO DAILY 01/25/20 03/24/20 Oxybutynin Chloride [Oxybutynin 1 tab PO DAILY 01/25/20 03/24/20 Chloride ER] Potassium Citrate [Potassium 2 tab PO DAILY 01/25/20 03/24/20 Citrate ER] Thyroid,Pork [[place] Thyroid] 1 tab PO DAILY 01/25/20 03/24/20 Torsemide 1 tab PO DAILY 01/25/20 03/24/20 Adalimumab [Humira(Cf) Pen 40 mg SUBQ Q14D 03/24/20 03/24/20 Iwka-Tb-Auws Hs] Apixaban [Eliquis] 5 mg PO DAILY 03/24/20 03/24/20 Insulin Glargine [Lantus Solostar] 35 unit SUBQ BID 03/24/20 03/24/20 traMADol [Ultram] 50 mg PO Q4-6H PRN #10 tablet 01/21/21 - Allergies Allergies/Adverse Reactions: Allergies Allergy/AdvReac Type Severity Reaction Status Date / Time azithromycin Allergy Rash Verified 01/21/21 14:38 glyburide Allergy Edema Verified 01/21/21 14:38 levofloxacin Allergy Hives Verified 01/21/21 14:38 lisinopril Allergy Respiratory Verified 01/21/21 14:38 losartan Allergy Hives Verified 01/21/21 14:38 metformin Allergy Cramps Verified 01/21/21 14:38 Sulfa (Sulfonamide Allergy Rash Verified 01/21/21 14:38 Antibiotics) triamcinolone Allergy Itching Verified 01/21/21 14:38 trimethoprim Allergy Rash Verified 01/21/21 14:38 yellow dye Allergy Rash Verified 01/21/21 14:38 - Social History Does the pt smoke?: No Smoking Status: Former smoker Does the pt drink ETOH?: No Does the pt have substance abuse?: No - Immunizations Immunizations are current?: Yes - POLST Patient has POLST: No PD ED PE NORMAL - Vitals Vital signs reviewed: Yes - General General: Alert and oriented X 3, No acute distress - Cardiac Cardiac: RRR, No murmur - Respiratory Respiratory: No respiratory distress, Clear bilaterally - Abdomen Abdomen: Soft, Other (Mildly tender in the right lower quadrant without surgical signs) - Back Back: No spinal TTP - Extremities Extremities: No deformity, No tenderness to palpate, Normal ROM s pain - Neuro Neuro: Alert and oriented X 3, Normal speech Results - Vitals Vitals: Vital Signs - 24 hr 01/21/21 01/21/21 01/21/21 14:38 16:41 18:00 Temperature 36.5 C 36.5 C 36.6 C Heart Rate 73 65 66 Respiratory 16 16 18 Rate Blood Pressure 179/54 H 159/126 H 145/58 H O2 Saturation 95 98 99 Oxygen O2 Source Room air - Labs Labs: Laboratory Tests 01/21/21 01/21/21 01/21/21 15:08 15:08 15:31 WBC 8.8 RBC 5.07 Hgb 15.1 Hct 46.1 MCV 90.9 MCH 29.8 MCHC 32.8 RDW 13.4 Plt Count 235 MPV 10.9 H Neut # (Auto) 5.9 Lymph # (Auto) 2.0 [place] # (Auto) 0.8 Eos # (Auto) 0.1 Baso # (Auto) 0.0 Absolute Nucleated RBC 0.00 Nucleated RBC % 0.0 Sodium 135 Potassium 3.6 Chloride 93 L Carbon Dioxide 32 Anion Gap 10.0 BUN 28 H Creatinine 1.1 H Estimated GFR (MDRD) 49 L Glucose 174 H Calcium 9.2 Total Bilirubin 2.4 H AST 31 ALT 24 Alkaline Phosphatase 112 Total Protein 8.0 Albumin 4.0 Globulin 4.0 Albumin/Globulin Ratio 1.0 Lipase 31 Urine Color YELLOW Urine Clarity CLEAR Urine pH 5.5 Ur Specific [place] 1.015 Urine Protein NEGATIVE Urine Glucose (UA) >=1000 H Urine Ketones NEGATIVE Urine Occult Blood NEGATIVE Urine Nitrite NEGATIVE Urine Bilirubin NEGATIVE Urine Urobilinogen 0.2 (NORMAL) Ur Leukocyte Esterase NEGATIVE Ur Microscopic Review NOT INDICATED Urine Culture Comments NOT INDICATED PD MEDICAL DECISION MAKING - ED course ED course: This is a natan 74-year-old woman with history of type 2 diabetes who presents with pelvic cramping last night. Exam was benign but somewhat limited by body habitus. CT discussed with her. She does not self cath but on further inf ormation has frequent incontinence which is not new and it is associated with pelvic organ prolapse for which she had already seen Dr. Maza and it sounds like they were considering a pessary but she got scared and failed to follow-up. With the finding of air in the bladder my suspicion is the pelvic organ prolapse is profoundly symptomatic for her and gynecology follow-up was advised. Departure - Departure Disposition: 01 Home, Self Care Clinical Impression: Abdominal pain Qualifiers: Abdominal location: unspecified location Qualified Code(s): R10.9 - Unspecified abdominal pain Prolapse of female pelvic organs Qualifiers: Prolapse type: unspecified female genital prolapse Qualified Code(s): N81.9 - Female genital prolapse, unspecified Condition: Good Record reviewed to determine appropriate education?: Yes Instructions: Pelvic Organ Prolapse Prescriptions: traMADol [Ultram] 50 mg PO Q4-6H PRN #10 tablet PRN Reason: Pain Comments: As discussed, go back and see Dr. Maza again. You can discuss with her specific treatments for the pelvic organ prolapse including pessary. Return if worsening or if you develop new symptoms
[2021-01-21 15:20] LABS: BASOPHILS % (AUTO) 0.3 %; EOSINOPHILS # (AUTO) 0.1 10^3/uL (0.0-0.7); EOSINOPHILS % (AUTO) 1.2 %; HCT - HEMATOCRIT 46.1 % (37.0-47.0); HGB - HEMOGLOBIN 15.1 g/dL (12.0-16.0); LYMPHOCYTES % (AUTO) 22.6 %; MEAN CORPUSCULAR HEMOGLOBIN 29.8 pg (27.0-31.0); MEAN CORPUSCULAR HGB CONC 32.8 g/dL (32.0-36.0); MEAN CORPUSCULAR VOLUME 90.9 fL (81.0-99.0); MEAN PLATELET VOLUME 10.9 fL (7.9-10.8); MONOCYTES # (AUTO) 0.8 10^3/uL (0.0-1.0); MONOCYTES % (AUTO) 9.2 %; NEUTROPHILS # (AUTO) 5.9 10^3/uL (1.5-6.6); NEUTROPHILS % (AUTO) 66.4 %; PLT - PLATELET COUNT 235 10^3/uL (130-450); RED BLOOD COUNT 5.07 10^6/uL (4.20-5.40); RED CELL DISTRIBUTION WIDTH 13.4 % (12.0-15.0); WHITE BLOOD COUNT 8.8 x10^3/uL (4.8-10.8)
[2021-01-21] MEDS ORDERED: IOVERSOL 320 100 ML VIAL IVP ONE (15:30)
[2021-01-21 15:37] LABS: BILIRUBIN,TOTAL 2.4 mg/dL (0.2-1.0); CALCIUM 9.2 mg/dL (8.5-10.3); CREATININE 1.1 mg/dL (0.4-1.0); POTASSIUM 3.6 mmol/L (3.5-5.0)
[2021-01-21 16:27] LABS: BILIRUBIN,URINE NEGATIVE (NEGATIVE); GLUCOSE, URINE (UA) >=1000 mg/dL (NEGATIVE); KETONES,URINE (UA) NEGATIVE (NEGATIVE); LEUKOCYTE ESTERASE, URINE NEGATIVE (NEGATIVE); NITRITE,URINE NEGATIVE (NEGATIVE); OCCULT BLOOD,URINE NEGATIVE (NEGATIVE); PH,URINE 5.5 PH (5.0-7.5); PROTEIN,URINE NEGATIVE (NEGATIVE); UROBILINOGEN,URINE 0.2 (NORMAL) E.U./dL (NORMAL)
[2021-01-21 16:31] LABS: CLARITY,URINE CLEAR (CLEAR)
--- NOTE | 2021-01-21 17:51 | CT Report ---
PROCEDURE: Abdomen/Pelvis WO INDICATIONS: RLQ pain TECHNIQUE: Noncontrast 5 mm thick sections acquired from the diaphragms to the symphysis. 5 mm coronal and sagi ttal reformats were then performed. For radiation dose reduction, the following was used: automated exposure control, adjustment of mA and/or kV according to patient size. COMPARISON: None. FINDINGS: Image quality: Excellent. ABDOMEN: Lung bases: Lung bases are clear. Heart size is normal. Solid organs: Liver and spleen are normal in size. Gallbladder surgically absent. Pancreas is norm al in contours. No adrenal nodules. Kidneys are normal in size, without hydronephrosis or nephrolit hiasis. Peritoneum and bowel: Unenhanced bowel loops demonstrate normal wall thickness and caliber. No free fluid or air. Normal appendix identified. Nodes and vessels: No retroperitoneal or mesenteric adenopathy by size criteria. Aorta and inferior vena cava are normal in caliber. Miscellaneous: No ventral hernias. PELVIS: Genitourinary: Bladder wall thickness is normal. Small amount of air in the bladder probably relate d to recent instrumentation. Miscellaneous: Periumbilical hernia contains fat without bowel involvement measuring 4.6 cm. Bones: No suspicious bony lesions. No vertebral body compression fractures. IMPRESSION: 1. Normal appendix identified. No evidence of appendicitis. 2. Small periumbilical hernia contains fat without bowel involvement. 3. Small amount of air in the bladder, probably related to recent instrumentation. 4. Cholecystectomy Reviewed by: Teddy Lowery MD on 01/21/2021 4:50 PM [facility] Approved by: Teddy Lowery MD on 01/21/2021 4:50 PM [facility]DT Station ID: [id number]
[2021-01-21 18:01] VITALS: BP 145/58
== END 2021-01-21 18:29 | disposition home or self-care (01) ==
LOC: ED 14:34
DX: N81.9 Female genital prolapse, unspecified (principal); I11.0 Hypertensive heart disease with heart failure; I50.9 Heart failure, unspecified; I48.91 Unspecified atrial fibrillation; Z79.01 Long term (current) use of anticoagulants; Z87.891 Personal history of nicotine dependence; E11.9 Type 2 diabetes mellitus without complications; Z79.4 Long term (current) use of insulin
CPT/HCPCS: 36415; 80053; 81001; 81003; 83690; 85025; 87086; 99284

== ENCOUNTER 2021-03-21 08:00 | Outpatient (CLI) | payer MEDICARE, OTHER ==
[2021-03-21 18:26] LABS: BASOPHILS % (AUTO) 0.3 %; EOSINOPHILS # (AUTO) 0.1 10^3/uL (0.0-0.7); EOSINOPHILS % (AUTO) 1.1 %; HCT - HEMATOCRIT 47.3 % (37.0-47.0); HGB - HEMOGLOBIN 14.8 g/dL (12.0-16.0); LYMPHOCYTES # (AUTO) 2.3 10^3/uL (1.5-3.5); LYMPHOCYTES % (AUTO) 22.1 %; MEAN CORPUSCULAR HEMOGLOBIN 30.1 pg (27.0-31.0); MEAN CORPUSCULAR HGB CONC 31.3 g/dL (32.0-36.0); MEAN CORPUSCULAR VOLUME 96.1 fL (81.0-99.0); MEAN PLATELET VOLUME 11.8 fL (7.9-10.8); MONOCYTES # (AUTO) 0.9 10^3/uL (0.0-1.0); MONOCYTES % (AUTO) 8.9 %; NEUTROPHILS # (AUTO) 6.9 10^3/uL (1.5-6.6); NEUTROPHILS % (AUTO) 67.1 %; PLT - PLATELET COUNT 236 10^3/uL (130-450); RED BLOOD COUNT 4.92 10^6/uL (4.20-5.40); RED CELL DISTRIBUTION WIDTH 13.9 % (12.0-15.0); WHITE BLOOD COUNT 10.3 x10^3/uL (4.8-10.8)
[2021-03-21 18:50] LABS: ALKALINE PHOSPHATASE 118 IU/L (42-121); ALT ALANINE AMINOTRANSFERASE 19 IU/L (10-60); AST ASPARTATE AMINOTRANSFERASE 23 IU/L (10-42); BILIRUBIN,TOTAL 1.4 mg/dL (0.2-1.0); BUN - BLOOD UREA NITROGEN 23 mg/dL (6-20); CALCIUM 9.1 mg/dL (8.5-10.3); CARBON DIOXIDE - CO2 34 mmol/L (21-32); CHLORIDE 97 mmol/L (101-111); CHOL/HDL RATIO 2.2 (<4.4); CHOLESTEROL 104 mg/dL; CREATININE 1.2 mg/dL (0.4-1.0); GFR - MDRD 44 (>89); GLUCOSE 175 mg/dL (70-100); HDL CHOLESTEROL 48 mg/dL; LDL CHOLESTEROL,CALCULATED 40 mg/dL; LDL/HDL RATIO 0.8 (<4.4); SODIUM 140 mmol/L (135-145); TOTAL PROTEIN 7.9 g/dL (6.7-8.2); TRIGLYCERIDES 81 mg/dL; VLDL CHOLESTEROL 16 mg/dL
[2021-03-21 18:53] LABS: CREATININE,URINE 127.2 mg/dL; MICROALBUM/CREATININE RATIO,UR 17.3 ug/mg (<30.0); MICROALBUMIN,URINE 2.2 mg/dL (0-300.0)
[2021-03-21 19:16] LABS: THYROID STIMULATING HORMONE 0.21 uIU/mL (0.34-5.60)
[2021-03-21 19:53] LABS: ESTIMATED AVERAGE GLUCOSE 189 mg/dL (70-100); HEMOGLOBIN A1c% 8.2 % (4.27-6.07)
[2021-03-21 19:57] LABS: FREE T4 (FREE THYROXINE) 0.81 ng/dL (0.58-1.64)
== END 2021-03-21 23:59 | disposition home or self-care (01) ==
LOC: LAB.WCP 08:00
PROVIDERS: ATTEND Family Medicine
DX: I27.20 Pulmonary hypertension, unspecified (principal); E11.9 Type 2 diabetes mellitus without complications; I11.0 Hypertensive heart disease with heart failure; I50.9 Heart failure, unspecified; E78.5 Hyperlipidemia, unspecified; E66.01 Morbid (severe) obesity due to excess calories; I48.0 Paroxysmal atrial fibrillation; G47.33 Obstructive sleep apnea (adult) (pediatric); E03.9 Hypothyroidism, unspecified
CPT/HCPCS: 36415; 80053; 80061; 82043; 82570; 83036; 83721; 84439; 84443; 85025

== ENCOUNTER 2021-04-30 15:17 | Outpatient (CLI) | payer MEDICARE, OTHER | END 2021-04-30 15:18 | disposition EMS.NT | LOC: EMS 15:17 | DX: Z03.89 Encounter for observation for other suspected diseases and conditions ruled out (principal) ==

== ENCOUNTER 2021-05-20 08:00 | Outpatient (CLI) | payer MEDICARE, OTHER | END 2021-05-20 23:59 | disposition home or self-care (01) | LOC: LAB 08:00 | PROVIDERS: ATTEND Family Medicine | DX: R05.9 Cough, unspecified (principal); Z20.822 Contact with and (suspected) exposure to COVID-19 ==

== ENCOUNTER 2021-07-01 15:49 | Outpatient (CLI) | payer MEDICARE, OTHER ==
[2021-07-01 18:25] LABS: CALCIUM 9.7 mg/dL (8.5-10.3); CREATININE 1.1 mg/dL (0.4-1.0); POTASSIUM 3.8 mmol/L (3.5-5.0)
[2021-07-01 18:32] LABS: CREATININE,URINE 79.1 mg/dL; MICROALBUM/CREATININE RATIO,UR 41.7 ug/mg (<30.0); MICROALBUMIN,URINE 3.3 mg/dL (0-300.0)
[2021-07-01 21:59] LABS: ESTIMATED AVERAGE GLUCOSE 192 mg/dL (70-100); HEMOGLOBIN A1c% 8.3 % (4.27-6.07)
== END 2021-07-01 15:50 | disposition home or self-care (01) ==
LOC: LAB.N 15:49
PROVIDERS: ATTEND Family Medicine
DX: E66.01 Morbid (severe) obesity due to excess calories (principal); E11.9 Type 2 diabetes mellitus without complications
CPT/HCPCS: 36415; 80048; 82043; 82570; 83036

== ENCOUNTER 2021-10-04 15:24 | Outpatient (CLI) | payer MEDICARE, OTHER ==
[2021-10-04 18:33] LABS: CALCIUM 9.1 mg/dL (8.5-10.3); POTASSIUM 4.1 mmol/L (3.5-5.0)
[2021-10-04 20:16] LABS: ESTIMATED AVERAGE GLUCOSE 209 mg/dL (70-100); HEMOGLOBIN A1c% 8.9 % (4.27-6.07)
== END 2021-10-04 15:25 | disposition home or self-care (01) ==
LOC: LAB.N 15:24
PROVIDERS: ATTEND Family Medicine
DX: E66.01 Morbid (severe) obesity due to excess calories (principal); E11.9 Type 2 diabetes mellitus without complications
CPT/HCPCS: 36415; 80048; 82043; 82570; 83036

== ENCOUNTER 2022-01-03 12:36 | Outpatient (CLI) | payer MEDICARE, OTHER | END 2022-01-03 12:37 | disposition home or self-care (01) | LOC: LAB.N 12:36 | PROVIDERS: ATTEND Family Medicine | DX: I27.20 Pulmonary hypertension, unspecified (principal); R32 Unspecified urinary incontinence; E03.9 Hypothyroidism, unspecified; J44.9 Chronic obstructive pulmonary disease, unspecified; I50.9 Heart failure, unspecified; E11.9 Type 2 diabetes mellitus without complications | CPT/HCPCS: 36415; 80053; 82043; 82570; 83036; 83880; 84439; 84443; 84481; 85025 ==

== ENCOUNTER 2022-02-06 17:34 | Emergency (ER) | payer MEDICARE, OTHER ==
[2022-02-06] MEDS ORDERED: predniSONE 20 MG TABLET PO STA (19:22)
[2022-02-06] MEDS ORDERED: oxyCODONE 5 MG TABLET PO STA (19:22)
--- NOTE | 2022-02-06 19:33 | ED Physician Documentation ---
History of Present Illness - Stated complaint Stated Complaint: R SIDE/HIP PAIN - Chief complaint Chief Complaint: Ext Problem - Additonal information Additional information: 76-year-old female who has a history of hypertension, diabetes, morbid obesity and atrial fibrillation anticoagulated on Eliquis presents to the emergency department for evaluation of acute on chronic low back pain. She reports that about 1 week ago she was having difficulty putting her socks on. She thinks she may have overstretched. Since then she has had pain in the right lower back radiating to the right leg. No fevers, no saddle anesthesia or loss of control of bowel or bladder function. She does report a history of chronic low back pain after an injury in the . She has not had an MRI of her back since 1998. Despite this that she has been able to ambulate at baseline with her walker. However the pain is causing her to lose sleep at night. Review of Systems Constitutional: denies: Fever, Chills Throat: reports: Reviewed and negative Cardiac: reports: Reviewed and negative Respiratory: reports: Reviewed and negative GI: reports: Reviewed and negative Musculoskeletal: reports: Back pain Neurologic: reports: Reviewed and negative PD PAST MEDICAL HISTORY - Past Medical History Cardiovascular: Congestive heart failure, Hypertension, High cholesterol, Atrial fibrillation Respiratory: COPD Neuro: None Endocrine/Autoimmune: None GI: GERD : Nocturia, Frequency HEENT: None Musculoskeletal: Osteoarthritis Derm: Psoriasis - Past Surgical History Past Surgical History: Yes - Present Medications Home Medications: Ambulatory Orders Medication Instructions Recorded Confirmed Hydrocodone/Acetaminophen [[place] 1 each PO Q6H PRN #15 tablet 05/14/19 01/21/21 5-325 Tablet] methocarbamoL [Robaxin] 500 mg PO TID PRN #20 tablet 05/14/19 01/21/21 Empagliflozin [Jardiance] 1 tab PO DAILY 01/25/20 01/21/21 Gabapentin 2 cap PO BID 01/25/20 01/21/21 Insulin Aspart (Vial) [NovoLOG 8 - 14 unit SQ TIDWM 01/25/20 01/21/21 (VIAL FOR ED USE)] Metoprolol Succinate 1 tab PO DAILY 01/25/20 01/21/21 Montelukast [Singulair] 1 tab PO DAILY PM 01/25/20 01/21/21 Omeprazole 1 cap PO DAILY 01/25/20 01/21/21 Oxybutynin Chloride [Oxybutynin 1 tab PO DAILY 01/25/20 01/21/21 Chloride ER] Potassium Citrate [Potassium 2 tab PO DAILY 01/25/20 01/21/21 Citrate ER] Thyroid,Pork [[place] Thyroid] 1 tab PO DAILY 01/25/20 01/21/21 Torsemide 1 tab PO DAILY 01/25/20 01/21/21 Apixaban [Eliquis] 5 mg PO DAILY 03/24/20 01/21/21 Insulin Glargine [Lantus Solostar] 35 unit SUBQ BID 03/24/20 01/21/21 Risankizumab-Rzaa [Skyrizi] 01/21/21 traMADol [Ultram] 50 mg PO Q4-6H PRN #10 tablet 01/21/21 oxyCODONE [Roxicodone] 5 mg PO BID PRN 2 Days #10 tablet 02/06/22 predniSONE [Deltasone] 40 mg PO DAILY 4 Days #8 tablet 02/06/22 - Allergies Allergies/Adverse Reactions: Allergies Allergy/AdvReac Type Severity Reaction Status Date / Time azithromycin Allergy Rash Verified 01/21/21 14:38 glyburide Allergy Edema Verified 01/21/21 14:38 levofloxacin Allergy Hives Verified 01/21/21 14:38 lisinopril Allergy Respiratory Verified 01/21/21 14:38 losartan Allergy Hives Verified 01/21/21 14:38 metformin Allergy Cramps Verified 01/21/21 14:38 Sulfa (Sulfonamide Allergy Rash Verified 01/21/21 14:38 Antibiotics) triamcinolone Allergy Itching Verified 01/21/21 14:38 trimethoprim Allergy Rash Verified 01/21/21 14:38 yellow dye Allergy Rash Verified 01/21/21 14:38 - Social History Does the pt smoke?: No Smoking Status: Former smoker Does the pt drink ETOH?: No Does the pt have substance abuse?: No - Immunizations Immunizations are current?: Yes - POLST Patient has POLST: No PD ED PE EXPANDED - General General: Alert, No acute distress, Other (Morbidly obese) - Cardiac Cardiac: Irregularly irregular, Radial strong equal, Pedal strong equal, Cap refill < 2 sec - Respiratory Respiratory: Clear to ausultation loni. No: Distress, Labored - Abdomen Abdomen: Normal Bowel sounds. No: Tender to palpation - Back Back: Soft tissue tenderness (Patient is able to ambulate at baseline with her rolling walker), Straight leg raise + R, Other (No midline spinous tenderness. There is tenderness at the SI point. Positive straight leg. Motor strength is 5 of 5 bilateral lower extremities. Her exam however is markedly limited by significant obesity.) - Extremities Extremities: Normal. No: Deformity, Tenderness - Neuro Neuro: Alert and Oriented X 3, CNII-XII intact - GCS Eye Opening: Spontaneous Motor: Obeys Commands Verbal: Oriented Total: 15 Results - Vitals Vitals: Vital Signs - 24 hr 02/06/22 17:58 Temperature 36.5 C Heart Rate 79 Respiratory 75 H Rate Blood Pressure 105/85 H O2 Saturation 95 Oxygen O2 Source Room air PD MEDICAL DECISION MAKING - ED course Complexity details: considered differential, d/w patient ED course: 76-year-old female presents emergency department for evaluation of acute on chronic right low back pain with radiation to the right leg. She has no saddle anesthesia loss of control of bowel or bladder function. Her exam is markedly limited due to body habitus but reassuringly patient is up and ambulating with her walker at baseline. I suspect she has an exacerbation of likely sciatica which she has endorsed in the past. In order to help manage this she will be given a course of steroids. She is advised to check her blood sugars more closely. Very limited prescription of oxycodone will also be sent to the pharmacy. She will follow-up closely with her primary care provider. She would likely benefit from physical therapy and/or consideration of an MRI. Emergent worrisome return precautions were discussed Departure - Departure Disposition: 01 Home, Self Care Clinical Impression: Right low back pain Qualifiers: Chronicity: chronic Sciatica presence: with sciatica Sciatica laterality: sciatica of right side Qualified Code(s): M54.41 - Lumbago with sciatica, right side; G89.29 - Other chronic pain Condition: Stable Record reviewed to determine appropriate education?: Yes Prescriptions: predniSONE [Deltasone] 40 mg PO DAILY 4 Days #8 tablet oxyCODONE [Roxicodone] 5 mg PO BID PRN 2 Days #10 tablet PRN Reason: Pain Comments: I suspect that you are having an exacerbation of your chronic low back pain and likely some sciatica. In order to treat this I would like you to fill the prescription for the prednisone and begin taking tomorrow for the next 4 days. Your dose was given initially here in the emergency department. I have also sent a limited prescription for oxycodone to the pharmacy to help with more severe pain. Your pharmacy was [facility]. It is important you discuss this ED visit with your primary care provider. You would likely benefit from referral to physical therapy, moderate weight loss and/or consideration of an MRI. If you develop fevers, lose sensation in your genital area, lose control of the ability to control your bowel or bladder then please return immediately to the ER for a second evaluation. I am prescribing a short course of narcotic pain medication for you. These are potentially dangerous and addictive medications that should be used carefully. These medications may constipate you. Take an xqds-dsn-phcbkjd stool softener (docusate) twice daily with plenty of water while taking these medications. If you go 24 hours without a bowel movement, take [id number]-[id number] miralax, per package instructions. Do not drink or drive while taking these medications. If you received narcotic or sedating medications while in the emergency department, do not drive for 24 hours. Store this medication in a safe, secure place and out of reach of children. It is a violation of federal law to give or sell this medication to another person or to use in a manner other than prescribed. The ED will not refill narcotic prescriptions, including prescriptions lost or stolen. To dispose of unwanted medications: 1. [facility] at [address] in [place] has a medication drop box. They accept prescription medications (in pill form) Sunday through Sunday 9:00 a.m. to 5:00 p.m. 2. [facility] [employer] accepts prescription medications (in pill form only) for disposal year round. Call for more information. 3. Contact the [facility] for the next [facility] sponsored prescription drug collection event. , [phone], or [phone]; Note that many narcotic pain relievers also contain Tylenol/acetaminophen. Please ensure that your total dose of acetaminophen from all sources does not exceed 3 g (3000 mg) per day.
[2022-02-06 19:46] VITALS: BP 100/50
== END 2022-02-06 19:47 | disposition home or self-care (01) ==
LOC: ED 17:34
DX: M54.41 Lumbago with sciatica, right side (principal); G89.29 Other chronic pain; E11.9 Type 2 diabetes mellitus without complications; Z79.4 Long term (current) use of insulin; E66.01 Morbid (severe) obesity due to excess calories; Z68.43 Body mass index [BMI] 50.0-59.9, adult; I48.91 Unspecified atrial fibrillation; Z79.01 Long term (current) use of anticoagulants; I11.0 Hypertensive heart disease with heart failure; I50.9 Heart failure, unspecified; J44.9 Chronic obstructive pulmonary disease, unspecified
CPT/HCPCS: 99282; A9270; J7512

== ENCOUNTER 2022-07-16 12:49 | Outpatient (CLI) | payer MEDICARE, OTHER ==
[2022-07-16 13:33] LABS: BASOPHILS # (AUTO) 0.1 10^3/uL (0.0-0.1); BASOPHILS % (AUTO) 0.6 %; EOSINOPHILS # (AUTO) 0.1 10^3/uL (0.0-0.7); EOSINOPHILS % (AUTO) 1.6 %; HCT - HEMATOCRIT 48.1 % (37.0-47.0); HGB - HEMOGLOBIN 15.3 g/dL (12.0-16.0); LYMPHOCYTES # (AUTO) 2.8 10^3/uL (1.5-3.5); LYMPHOCYTES % (AUTO) 33.4 %; MEAN CORPUSCULAR HEMOGLOBIN 30.4 pg (27.0-31.0); MEAN CORPUSCULAR HGB CONC 31.8 g/dL (32.0-36.0); MEAN CORPUSCULAR VOLUME 95.6 fL (81.0-99.0); MEAN PLATELET VOLUME 10.6 fL (7.9-10.8); MONOCYTES # (AUTO) 0.9 10^3/uL (0.0-1.0); MONOCYTES % (AUTO) 10.5 %; NEUTROPHILS # (AUTO) 4.4 10^3/uL (1.5-6.6); NEUTROPHILS % (AUTO) 53.7 %; PLT - PLATELET COUNT 234 10^3/uL (130-450); RED BLOOD COUNT 5.03 10^6/uL (4.20-5.40); RED CELL DISTRIBUTION WIDTH 12.9 % (12.0-15.0); WHITE BLOOD COUNT 8.3 x10^3/uL (4.8-10.8)
[2022-07-16 13:48] LABS: ALBUMIN 4.1 g/dL (3.2-5.5); BILIRUBIN,DIRECT 0.3 mg/dL (0.1-0.5); BILIRUBIN,TOTAL 1.8 mg/dL (0.2-1.0); CALCIUM 9.3 mg/dL (8.5-10.3); CREATININE 1.1 mg/dL (0.4-1.0); POTASSIUM 3.8 mmol/L (3.5-5.0)
[2022-07-16 14:02] LABS: THYROID STIMULATING HORMONE 0.48 uIU/mL (0.34-5.60)
[2022-07-16 14:04] LABS: FREE T3 2.91 pg/mL (2.5-3.9); FREE T4 (FREE THYROXINE) 0.66 ng/dL (0.58-1.64)
[2022-07-16 20:30] LABS: ESTIMATED AVERAGE GLUCOSE 183 mg/dL (70-100)
[2022-07-17 09:08] LABS: HBsAG SCREEN Negative (Negative); HCV AB <0.1 s/co ratio (0.0-0.9)
== END 2022-07-16 12:50 | disposition home or self-care (01) ==
LOC: LAB 12:49
PROVIDERS: ATTEND Family Medicine
DX: I11.0 Hypertensive heart disease with heart failure (principal); I50.9 Heart failure, unspecified; E11.65 Type 2 diabetes mellitus with hyperglycemia; I27.20 Pulmonary hypertension, unspecified; E66.01 Morbid (severe) obesity due to excess calories; G47.33 Obstructive sleep apnea (adult) (pediatric); E03.9 Hypothyroidism, unspecified; L40.0 Psoriasis vulgaris; Z79.899 Other long term (current) drug therapy
CPT/HCPCS: 36415; 80048; 80076; 81599; 83036; 84439; 84443; 84481; 85025; 86803; 87340

== ENCOUNTER 2022-10-03 10:26 | Outpatient (CLI) | payer MEDICARE, OTHER ==
[2022-10-03 12:08] LABS: CALCIUM 9.9 mg/dL (8.5-10.3); CREATININE 1.4 mg/dL (0.4-1.0); POTASSIUM 4.4 mmol/L (3.5-5.0)
== END 2022-10-03 10:27 | disposition home or self-care (01) ==
LOC: LAB.N 10:26
PROVIDERS: ATTEND Family Medicine
DX: I50.9 Heart failure, unspecified (principal)
CPT/HCPCS: 36415; 80048

== ENCOUNTER 2022-12-08 15:03 | Emergency (ER) | payer MEDICARE, OTHER ==
--- NOTE | 2022-12-08 15:08 | ED Physician Documentation ---
PD HPI LOWER EXT INJURY - Stated complaint Stated Complaint: RT FOOT PX,SWELLING - History obtained from History obtained from: Patient - History of Present Illness PD HPI LOW EXT INJURY LOCATION: Right, Foot, Toe (she has had gradual onset and steady worsening of pain and redness at MTP araea of great toe. No noted injury. No sores/skin lesions. No prior similar symptoms.) Type of injury: No: Fall, Twist, Blunt / blow, Penetrating / stab / GSW Where injury occurred: Home Timing - onset: How many days ago (gradual over past few days, but is today quite severe.) Timing - duration: Days Timing - details: Gradual onset, Still present Pain level max: 10 Pain level now: 10 Improved by: No: Rest Worsened by: Moving, Palpating Associated symptoms: Swelling, Discolored (red). No: Weakness, Numbness Similar symptoms before: Has not had sx before Review of Systems Constitutional: denies: Fever, Chills Skin: denies: Lesions, Abrasion (s), Laceration (s) Neurologic: denies: Focal weakness, Numbness PD PAST MEDICAL HISTORY - Past Medical History Cardiovascular: Congestive heart failure, Hypertension, High cholesterol, Atrial fibrillation Respiratory: COPD Neuro: None Endocrine/Autoimmune: None GI: GERD : Nocturia, Frequency HEENT: None Musculoskeletal: Osteoarthritis, Other (no prior history of gout. ) Derm: Psoriasis - Past Surgical History Past Surgical History: Yes - Present Medications Home Medications: Ambulatory Orders Medication Instructions Recorded Confirmed Hydrocodone/Acetaminophen [[place] 1 each PO Q6H PRN #15 tablet 05/14/19 01/21/21 5-325 Tablet] methocarbamoL [Robaxin] 500 mg PO TID PRN #20 tablet 05/14/19 01/21/21 Empagliflozin [Jardiance] 1 tab PO DAILY 01/25/20 01/21/21 Gabapentin 2 cap PO BID 01/25/20 01/21/21 Insulin Aspart (Vial) [NovoLOG 8 - 14 unit SQ TIDWM 01/25/20 01/21/21 (VIAL FOR ED USE)] Metoprolol Succinate 1 tab PO DAILY 01/25/20 01/21/21 Montelukast [Singulair] 1 tab PO DAILY PM 01/25/20 01/21/21 Omeprazole 1 cap PO DAILY 01/25/20 01/21/21 Oxybutynin Chloride [Oxybutynin 1 tab PO DAILY 01/25/20 01/21/21 Chloride ER] Potassium Citrate [Potassium 2 tab PO DAILY 01/25/20 01/21/21 Citrate ER] Thyroid,Pork [[place] Thyroid] 1 tab PO DAILY 01/25/20 01/21/21 Torsemide 1 tab PO DAILY 01/25/20 01/21/21 Apixaban [Eliquis] 5 mg PO DAILY 03/24/20 01/21/21 Insulin Glargine [Lantus Solostar] 35 unit SUBQ BID 03/24/20 01/21/21 Risankizumab-Rzaa [Skyrizi] 01/21/21 traMADol [Ultram] 50 mg PO Q4-6H PRN #10 tablet 01/21/21 oxyCODONE [Roxicodone] 5 mg PO BID PRN 2 Days #10 tablet 02/06/22 predniSONE [Deltasone] 40 mg PO DAILY 4 Days #8 tablet 02/06/22 HYDROcod/ACETAM 5/325 [[place] 5/325] 1 ea PO Q6H PRN #18 tablet 12/08/22 HYDROcod/ACETAM 5/325 [[place] 5/325] 1 ea PO Q6H PRN #18 tablet 12/08/22 dexAMETHasone [Decadron] 4 mg PO DAILY #5 tablet 12/08/22 - Allergies Allergies/Adverse Reactions: Allergies Allergy/AdvReac Type Severity Reaction Status Date / Time azithromycin Allergy Rash Verified 12/08/22 15:12 glyburide Allergy Edema Verified 12/08/22 15:12 levofloxacin Allergy Hives Verified 12/08/22 15:12 lisinopril Allergy Respiratory Verified 12/08/22 15:12 losartan Allergy Hives Verified 12/08/22 15:12 metformin Allergy Cramps Verified 12/08/22 15:12 Sulfa (Sulfonamide Allergy Rash Verified 12/08/22 15:12 Antibiotics) triamcinolone Allergy Itching Verified 12/08/22 15:12 trimethoprim Allergy Rash Verified 12/08/22 15:12 yellow dye Allergy Rash Verified 12/08/22 15:12 - Social History Does the pt smoke?: No Smoking Status: Former smoker Does the pt drink ETOH?: No Does the pt have substance abuse?: No - Immunizations Immunizations are current?: Yes - POLST Patient has POLST: No Results - Vitals Vitals: Vital Signs - 24 hr 12/08/22 12/08/22 15:09 16:53 Temperature 36.3 C L Heart Rate 71 62 Respiratory 16 16 Rate Blood Pressure 154/62 H 150/60 H O2 Saturation 97 98 Oxygen O2 Source Room air - Rads (name of study) foot xray Relevant Findings:: Prelim report reviewed, EMP independent interpretation of test (no acute bony abnormalities. ), See rad report PD Medical Decision Making - ED course Complexity details: reviewed results, considered differential (exam and symptom progression very c/w gout. No signs of infectious nidus. No injury noted. There is not that much joint swelling to try aspiration. Shared decision with patient to empirically treat as gout. ), d/w patient ED course: Nursing tell me the patient had called and asked that the prescription be changed from [facility] to [facility]. I did such. Departure - Departure Disposition: 01 Home, Self Care Clinical Impression: Acute foot pain Qualifiers: Laterality: right Qualified Code(s): M79.671 - Pain in right foot Gout attack Qualifiers: Gout site: toe Gout etiology: unspecified cause Laterality: right Qualified Code(s): M10.9 - Gout, unspecified Condition: Stable Record reviewed to determine appropriate education?: Yes Instructions: ED Arthritis Gout Follow-Up: Nelson Bustamante MD [Primary Care Provider] - Prescriptions: dexAMETHasone [Decadron] 4 mg PO DAILY #5 tablet HYDROcod/ACETAM 5/325 [[place] 5/325] 1 ea PO Q6H PRN #18 tablet PRN Reason: Pain HYDROcod/ACETAM 5/325 [[place] 5/325] 1 ea PO Q6H PRN #18 tablet PRN Reason: Pain Comments: Your x-ray appears normal without any signs of bony abnormality. Your foot on exam and your symptoms are quite consistent with gout. This can often be an isolated episode and not necessarily portend repeat episodes in the near future. We will treat this current episode with anti-inflammatories and pain medicine and see if it resolves over the next few days which would commonly occur. Then see if you have any recurring episodes in the near future. If you have repeat episodes, then there are potential preventive medicines to take to try to help with that but I would not suggest that based on a single episode. I sent your prescriptions to [facility] in [place].. Thus not right I am prescribing a short course of narcotic pain medication for you. These are potentially dangerous and addictive medications that should be used carefully. These medications may constipate you. Take an lsyf-hsd-mnqxnuw stool softener such as docusate twice daily with plenty of water while taking these medications. If you go 24 hours without a bowel movement, take tinl-leq-urkhnlo MiraLAX, per package instructions. Do not drink or drive while taking these medications. If you received narcotic or sedating medications while in the emergency department do not drive for 24 hours. Store this medication in a safe, secure place and out of reach of children. It is a violation of federal law to give or sell this medication to another person or to use in a manner other than prescribed. The ED will not refill narcotic prescriptions, including prescriptions lost or stolen. You can dispose of unwanted medications at the [facility] office or at several pharmacies such as [facility]. Discharge Date/Time: 12/08/22 16:54
[2022-12-08] MEDS ORDERED: DEXAMETHASONE 10 MG/ML VIAL PO STA (15:52)
[2022-12-08] MEDS ORDERED: CHERRY SYRUP 10 ML UDC PO ONE (15:52)
[2022-12-08] MEDS ORDERED: ACETAMINOPHEN 325 MG TABLET PO STA (15:52)
--- NOTE | 2022-12-08 16:30 | XRAY Report ---
PROCEDURE: Foot 3 View RT INDICATIONS: right great toe MCP and 1st MT pain for days TECHNIQUE: 3 views of the foot were acquired. COMPARISON: None. FINDINGS: Bones: No acute fractures seen. Alignment is anatomic. No suspicious osseous erosions. No suspicious periosteal reaction. No evidence for cortical destruction. Prominent plantar calcaneal enthesophyte. Mild degenerative changes of the dorsal midfoot. Soft tissues: No suspicious soft tissue calcifications or masses. Mild soft tissue swelling of the right forefoot. No evidence for soft tissue gas. IMPRESSION: Right foot without acute fracture or dislocation. Mild soft tissue swelling of the right forefoot. Prominent plantar calcaneal enthesophyte. If there is continued clinical concern for pathology or occult fracture, consider follow-up imaging w ith repeat radiographs in 10-14 days and possible advanced imaging (CT, MRI, bone scan) if symptoms p ersist. Reviewed by: Eliseo Stubbs MD on 12/08/2022 4:28 PM PDT Approved by: Eliseo Stubbs MD on 12/08/2022 4:28 PM PDT Station ID: [id number]
[2022-12-08 16:54] VITALS: BP 150/60
== END 2022-12-08 16:54 | disposition home or self-care (01) ==
LOC: ED 15:03
DX: M10.9 Gout, unspecified (principal); Z87.891 Personal history of nicotine dependence
CPT/HCPCS: 73630; 99283; 99284; A9270

== ENCOUNTER 2022-12-28 10:04 | Outpatient (CLI) | payer MEDICARE, OTHER ==
[2022-12-28 11:59] LABS: BASOPHILS % (AUTO) 0.5 %; EOSINOPHILS # (AUTO) 0.1 10^3/uL (0.0-0.7); EOSINOPHILS % (AUTO) 1.8 %; HGB - HEMOGLOBIN 15.2 g/dL (12.0-16.0); LYMPHOCYTES # (AUTO) 2.7 10^3/uL (1.5-3.5); LYMPHOCYTES % (AUTO) 35.6 %; MEAN CORPUSCULAR HEMOGLOBIN 31.5 pg (27.0-31.0); MEAN CORPUSCULAR VOLUME 95.2 fL (81.0-99.0); MEAN PLATELET VOLUME 11.4 fL (7.9-10.8); MONOCYTES # (AUTO) 1.2 10^3/uL (0.0-1.0); MONOCYTES % (AUTO) 15.9 %; NEUTROPHILS # (AUTO) 3.5 10^3/uL (1.5-6.6); NEUTROPHILS % (AUTO) 46.1 %; PLT - PLATELET COUNT 192 10^3/uL (130-450); RED BLOOD COUNT 4.83 10^6/uL (4.20-5.40); RED CELL DISTRIBUTION WIDTH 12.5 % (12.0-15.0); WHITE BLOOD COUNT 7.6 x10^3/uL (4.8-10.8)
[2022-12-28 12:19] LABS: CALCIUM 9.5 mg/dL (8.5-10.3); CREATININE 1.4 mg/dL (0.4-1.0); POTASSIUM 3.9 mmol/L (3.5-5.0)
[2022-12-28 12:25] LABS: ALBUMIN 4.1 g/dL (3.2-5.5); BILIRUBIN,DIRECT 0.3 mg/dL (0.1-0.5)
[2022-12-28 12:44] LABS: ESTIMATED AVERAGE GLUCOSE 212 mg/dL (70-100)
[2022-12-28 12:57] LABS: CREATININE,URINE 111.7 mg/dL; MICROALBUM/CREATININE RATIO,UR 27.8 ug/mg (<30.0); MICROALBUMIN,URINE 3.1 mg/dL (0-300.0)
== END 2022-12-28 10:05 | disposition home or self-care (01) ==
LOC: LAB.N 10:04
PROVIDERS: ATTEND Family Medicine
DX: E11.65 Type 2 diabetes mellitus with hyperglycemia (principal); I27.20 Pulmonary hypertension, unspecified; I50.9 Heart failure, unspecified; E66.01 Morbid (severe) obesity due to excess calories; K21.9 Gastro-esophageal reflux disease without esophagitis; J44.9 Chronic obstructive pulmonary disease, unspecified; L40.0 Psoriasis vulgaris
CPT/HCPCS: 36415; 80048; 80076; 81599; 82043; 82570; 83036; 85025; 86480

== ENCOUNTER 2023-02-07 13:22 | Emergency (ER) | payer MEDICARE, OTHER ==
[2023-02-07 13:37] VITALS: BP 104/58
[2023-02-07] MEDS ORDERED: HYDROcod/ACETAM 5/325 MG TABLET PO STA (13:41)
--- NOTE | 2023-02-07 14:07 | XRAY Report ---
PROCEDURE: Knee 4 View LT INDICATIONS: L knee pain no new injury TECHNIQUE: 4 views of the left knee(s) were acquired. COMPARISON: None. FINDINGS: Bones: No fractures or dislocations. Moderate to severe tricompartmental osteoarthritis is seen most notably in medial femoral tibial compartment. No suspicious bony lesions. Soft tissues: Small knee joint effusion. No suspicious soft tissue calcifications or masses. IMPRESSION: No acute left knee fracture or dislocation. Moderate to severe tricompartmental osteoarthritis and sm all joint effusion. Reviewed by: Brian Mancuso MD on 02/07/2023 2:05 PM PDT Approved by: Brian Mancuso MD on 02/07/2023 2:05 PM PDT Station ID: [id number]
--- NOTE | 2023-02-07 14:55 | ED Physician Documentation ---
History of Present Illness - Stated complaint Stated Complaint: LT KNEE PX - Chief complaint Chief Complaint: Ext Problem - History obtained from History obtained from: Patient, Family - History of Present Illness Timing: Chronic Pain level max: 7 Pain level now: 7 - Additonal information Additional information: 77-year-old female presents to the emergency department stating that she has had knee pain for several years, but worse over the past several days. Worse with movement, better with rest. She states she has not seen an orthopedist in about 5 years, but states that she was told she has arthritis in her knee. Her doctor has referred her to rheumatology. She states increased pain today. She states she recently was on steroids for gout and her pain did improve significantly. She is on Eliquis, so tries to avoid anti-inflammatory medications. Does not recall any specific injury. She states she feels like her knee is going to give out on her. She states she did try brace several years ago but has not tried one since. She does have a walker. No falls. No head, neck, back pain. No bowel or bladder incontinence. 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 : Nocturia, Frequency HEENT: None Psych: None Musculoskeletal: Osteoarthritis, Other Derm: Psoriasis - Past Surgical History Past Surgical History: Yes General: Other - Present Medications Home Medications: Ambulatory Orders Medication Instructions Recorded Confirmed methocarbamoL [Robaxin] 500 mg PO TID PRN #20 tablet 05/14/19 01/21/21 Empagliflozin [Jardiance] 1 tab PO DAILY 01/25/20 01/21/21 Gabapentin 2 cap PO BID 01/25/20 01/21/21 Insulin Aspart (Vial) [NovoLOG 8 - 14 unit SQ TIDWM 01/25/20 01/21/21 (VIAL FOR ED USE)] Metoprolol Succinate 1 tab PO DAILY 01/25/20 01/21/21 Montelukast [Singulair] 1 tab PO DAILY PM 01/25/20 01/21/21 Omeprazole 1 cap PO DAILY 01/25/20 01/21/21 Oxybutynin Chloride [Oxybutynin 1 tab PO DAILY 01/25/20 01/21/21 Chloride ER] Potassium Citrate [Potassium 2 tab PO DAILY 01/25/20 01/21/21 Citrate ER] Thyroid,Pork [[place] Thyroid] 1 tab PO DAILY 01/25/20 01/21/21 Torsemide 1 tab PO DAILY 01/25/20 01/21/21 Apixaban [Eliquis] 5 mg PO DAILY 03/24/20 01/21/21 Insulin Glargine [Lantus Solostar] 35 unit SUBQ BID 03/24/20 01/21/21 Risankizumab-Rzaa [Skyrizi] 150 mg IV MAINTENANCE.IV 01/21/21 traMADol [Ultram] 50 mg PO Q4-6H PRN #10 tablet 01/21/21 oxyCODONE [Roxicodone] 5 mg PO BID PRN 2 Days #10 tablet 02/06/22 Diclofenac Sodium 1% Gel [Voltaren 4 gm TOP QID PRN #1 each 02/07/23 Gel] HYDROcod/ACETAM 5/325 [Kempton 5/325] 1 ea PO Q6H PRN #14 tablet 02/07/23 - Allergies Allergies/Adverse Reactions: Allergies Allergy/AdvReac Type Severity Reaction Status Date / Time azithromycin Allergy Rash Verified 02/07/23 13:31 glyburide Allergy Edema Verified 02/07/23 13:31 levofloxacin Allergy Hives Verified 02/07/23 13:31 lisinopril Allergy Respiratory Verified 02/07/23 13:31 losartan Allergy Hives Verified 02/07/23 13:31 metformin Allergy Cramps Verified 02/07/23 13:31 Sulfa (Sulfonamide Allergy Rash Verified 02/07/23 13:31 Antibiotics) triamcinolone Allergy Itching Verified 02/07/23 13:31 trimethoprim Allergy Rash Verified 02/07/23 13:31 yellow dye Allergy Rash Verified 02/07/23 13:31 - Social History Does the pt smoke?: No Smoking Status: Never smoker Does the pt drink ETOH?: No Does the pt have substance abuse?: No - Immunizations Immunizations are current?: Yes - POLST Patient has POLST: No PD ED PE NORMAL - Vitals Vital signs reviewed: Yes - General General: Alert and oriented X 3, No acute distress - HEENT HEENT: PERRL, Moist mucous membranes - Neck Neck: Supple, no meningeal sign - Cardiac Cardiac: RRR, Strong equal pulses - Respiratory Respiratory: No respiratory distress, Clear bilaterally - Derm Derm: Warm and dry - Extremities Extremities: Other (Right knee has a benign exam. Left knee ACL, MCL, PCL, LCL are intact. Unable to tolerate meniscus testing. Diffuse tenderness along the medial and lateral joint line. Neurovascular intact.) - Neuro Neuro: Alert and oriented X 3 - Psych Psych: Normal mood, Normal affect Results - Vitals Vitals: Vital Signs - 24 hr 02/07/23 02/07/23 13:26 13:54 Temperature 35.9 C L Heart Rate 64 Respiratory 20 20 Rate Blood Pressure 104/58 L O2 Saturation 98 Oxygen O2 Source Room air - Rads (name of study) Left knee x-ray Relevant Findings:: Final report received, See rad report PD Medical Decision Making - ED course Complexity details: reviewed results, re-evaluated patient, considered differential, d/w patient, d/w family ED course: 77-year-old female with a small joint effusion and moderate to severe arthritis in the left knee. No evidence of fracture. Placed in articulating knee brace for comfort. We will prescribe pain medication for breakthrough pain and place her on topical Voltaren gel. Recommend that she follow-up with an orthopedist for further care. She may benefit from steroid injections in the knee as systemic steroids did help her pain. Patient counseled regarding signs and symptoms for which I believe and urgent re-evaluation would be necessary. Patient with good understanding of and agreement to plan and is comfortable going home at this time This document was made in part using voice recognition software. While efforts are made to proofread this document, sound alike and grammatical errors may occur. Departure - Departure Disposition: 01 Home, Self Care Clinical Impression: Knee effusion, left Osteoarthritis Qualifiers: Osteoarthritis location: unspecified site Osteoarthritis type: unspecified Qualified Code(s): M19.90 - Unspecified osteoarthritis, unspecified site Condition: Good Instructions: ED Effusion Knee, ED Degenerative Joint Disease Follow-Up: Nelson Bustamante MD [Provider Admit Priv/Credential] - Nelson Bustamante MD [Provider Admit Priv/Credential] - [facility] [Provider Group] Prescriptions: HYDROcod/ACETAM 5/325 [Kempton 5/325] 1 ea PO Q6H PRN #14 tablet PRN Reason: Pain Diclofenac Sodium 1% Gel [Voltaren Gel] 4 gm TOP QID PRN #1 each PRN Reason: knee pain Comments: Your prescriptions were sent to [facility] in [place]. You can use the brace as needed for comfort. Please follow-up with your doctor for further care. You would likely benefit from a referral to an orthopedist to discuss injections into your joint. IMPRESSION: No acute left knee fracture or dislocation. Moderate to severe tricompartmental osteoarthritis and small joint effusion. I am prescribing a short course of narcotic pain medication for you. These are potentially dangerous and addictive medications that should be used carefully. These medications may constipate you. Take an ocjj-ade-duaziir stool softener (docusate) twice daily with plenty of water while taking these medications. If you go 24 hours without a bowel movement, take kpoh-ydl-veazpsn miralax, per package instructions. Do not drink or drive while taking these medications. If you received narcotic or sedating medications while in the emergency department, do not drive for 24 hours. Store this medication in a safe, secure place and out of reach of children. It is a violation of federal law to give or sell this medication to another person or to use in a manner other than prescribed. The ED will not refill narcotic prescriptions, including prescriptions lost or stolen. To dispose of unwanted medications: 1. [facility] [address] in [place] has a medication drop box. They accept prescription medications (in pill form) Sunday through Sunday 9:00 a.m. to 5:00 p.m. 2. The [facility] [place] [employer] accepts prescription medications (in pill form only) for disposal year round. Call for more information. 3. Contact the [facility] for the next [facility] sponsored prescription drug collection event. , [phone], or [phone]; Discharge Date/Time: 02/07/23 15:16
== END 2023-02-07 15:16 | disposition home or self-care (01) ==
LOC: ED 13:22
DX: M25.462 Effusion, left knee (principal); M17.12 Unilateral primary osteoarthritis, left knee; I11.0 Hypertensive heart disease with heart failure; I50.9 Heart failure, unspecified; E10.9 Type 1 diabetes mellitus without complications; J44.9 Chronic obstructive pulmonary disease, unspecified; Z79.899 Other long term (current) drug therapy; Z79.01 Long term (current) use of anticoagulants
CPT/HCPCS: 73564; 99283; A9270

== ENCOUNTER 2023-02-28 16:03 | Outpatient (CLI) | payer MEDICARE, OTHER ==
[2023-02-28 16:21] LABS: BASOPHILS % (AUTO) 0.5 %; EOSINOPHILS # (AUTO) 0.2 10^3/uL (0.0-0.7); EOSINOPHILS % (AUTO) 1.9 %; HCT - HEMATOCRIT 46.7 % (37.0-47.0); HGB - HEMOGLOBIN 15.2 g/dL (12.0-16.0); LYMPHOCYTES % (AUTO) 34.3 %; MEAN CORPUSCULAR HEMOGLOBIN 31.1 pg (27.0-31.0); MEAN CORPUSCULAR HGB CONC 32.5 g/dL (32.0-36.0); MEAN CORPUSCULAR VOLUME 95.7 fL (81.0-99.0); MEAN PLATELET VOLUME 10.5 fL (7.9-10.8); MONOCYTES # (AUTO) 1.2 10^3/uL (0.0-1.0); MONOCYTES % (AUTO) 13.9 %; NEUTROPHILS # (AUTO) 4.3 10^3/uL (1.5-6.6); NEUTROPHILS % (AUTO) 49.3 %; PLT - PLATELET COUNT 225 10^3/uL (130-450); RED BLOOD COUNT 4.88 10^6/uL (4.20-5.40); RED CELL DISTRIBUTION WIDTH 12.6 % (12.0-15.0); WHITE BLOOD COUNT 8.6 x10^3/uL (4.8-10.8)
[2023-02-28 16:35] LABS: ALBUMIN 4.2 g/dL (3.2-5.5); ALBUMIN/GLOBULIN RATIO 1.2 (1.0-2.2); BILIRUBIN,TOTAL 2.3 mg/dL (0.2-1.0); CALCIUM 10.3 mg/dL (8.5-10.3); CREATININE 1.8 mg/dL (0.6-1.3); POTASSIUM 4.3 mmol/L (3.5-4.5); TOTAL PROTEIN 7.8 g/dL (6.4-8.9); URIC ACID 10.6 mg/dL (2.3-6.6)
--- NOTE | 2023-02-28 16:35 | XRAY Report ---
PROCEDURE: Chest 2 View X-Ray INDICATIONS: CONGESTIVE HEART FAILURE, DIASTOLIC, SHORTNESS OF TECHNIQUE: 2 views of the chest were acquired. COMPARISON: None. FINDINGS: Surgical changes and devices: None. Lungs and pleura: No pleural effusions or pneumothorax. Lungs are clear. Mediastinum: Mediastinal contours appear normal. Heart size is normal. Bones and chest wall: No suspicious bony lesions. Overlying soft tissues appear unremarkable. IMPRESSION: No acute cardiopulmonary process. Reviewed by: Arline Garcia MD on 02/28/2023 4:33 PM PDT Approved by: Arline Garcia MD on 02/28/2023 4:33 PM PDT Station ID: [id number]
[2023-02-28 16:52] LABS: THYROID STIMULATING HORMONE 0.02 uIU/mL (0.34-5.60)
[2023-02-28 20:00] LABS: ESTIMATED AVERAGE GLUCOSE 183 mg/dL (70-100)
== END 2023-02-28 16:04 | disposition home or self-care (01) ==
LOC: DI 16:03
PROVIDERS: ATTEND Nurse Practitioner
DX: I50.30 Unspecified diastolic (congestive) heart failure (principal); R06.02 Shortness of breath; L40.50 Arthropathic psoriasis, unspecified; M10.9 Gout, unspecified; E11.65 Type 2 diabetes mellitus with hyperglycemia; E03.9 Hypothyroidism, unspecified
CPT/HCPCS: 36415; 80053; 83036; 83880; 84443; 84550; 85025

== ENCOUNTER 2023-04-12 18:18 | Outpatient (CLI) | payer MEDICARE, OTHER ==
[2023-04-12 20:37] LABS: BASOPHILS % (AUTO) 0.5 %; EOSINOPHILS # (AUTO) 0.1 10^3/uL (0.0-0.7); EOSINOPHILS % (AUTO) 1.5 %; HGB - HEMOGLOBIN 14.2 g/dL (12.0-16.0); LYMPHOCYTES # (AUTO) 2.4 10^3/uL (1.5-3.5); LYMPHOCYTES % (AUTO) 31.2 %; MEAN CORPUSCULAR HEMOGLOBIN 30.7 pg (27.0-31.0); MEAN CORPUSCULAR HGB CONC 32.3 g/dL (32.0-36.0); MEAN PLATELET VOLUME 11.7 fL (7.9-10.8); MONOCYTES # (AUTO) 1.2 10^3/uL (0.0-1.0); MONOCYTES % (AUTO) 14.9 %; NEUTROPHILS % (AUTO) 51.4 %; PLT - PLATELET COUNT 217 10^3/uL (130-450); RED BLOOD COUNT 4.63 10^6/uL (4.20-5.40); WHITE BLOOD COUNT 7.8 x10^3/uL (4.8-10.8)
[2023-04-12 20:52] LABS: ALBUMIN 3.9 g/dL (3.2-5.5); BILIRUBIN,DIRECT 0.21 mg/dL (0.03-0.18); BILIRUBIN,TOTAL 1.5 mg/dL (0.2-1.0); TOTAL PROTEIN 6.9 g/dL (6.4-8.9)
== END 2023-04-12 18:19 | disposition home or self-care (01) ==
LOC: LAB.N 18:18
PROVIDERS: ATTEND Physician Assistant Medical
DX: L40.0 Psoriasis vulgaris (principal)
CPT/HCPCS: 36415; 80076; 85025

== ENCOUNTER 2023-06-07 13:55 | Outpatient (CLI) | payer MEDICARE, OTHER ==
[2023-06-07 18:31] LABS: ALBUMIN 4.2 g/dL (3.2-5.5); ALBUMIN/GLOBULIN RATIO 1.3 (1.0-2.2); BILIRUBIN,TOTAL 2.3 mg/dL (0.2-1.0); CALCIUM 9.8 mg/dL (8.5-10.3); CREATININE 1.4 mg/dL (0.6-1.3); POTASSIUM 4.2 mmol/L (3.5-4.5); TOTAL PROTEIN 7.4 g/dL (6.4-8.9)
[2023-06-07 18:34] LABS: THYROID STIMULATING HORMONE 0.01 uIU/mL (0.34-5.60)
[2023-06-07 20:57] LABS: ESTIMATED AVERAGE GLUCOSE 177 mg/dL (70-100); HEMOGLOBIN A1c% 7.8 % (4.27-6.07)
== END 2023-06-07 13:56 | disposition home or self-care (01) ==
LOC: LAB.N 13:55
PROVIDERS: ATTEND Family Medicine
DX: E11.8 Type 2 diabetes mellitus with unspecified complications (principal); R25.1 Tremor, unspecified; Z79.4 Long term (current) use of insulin
CPT/HCPCS: 36415; 80053; 83036; 84439; 84443

== ENCOUNTER 2023-07-27 14:06 | Outpatient (CLI) | payer MEDICARE, OTHER | END 2023-07-27 14:07 | disposition critical access hospital (66) | LOC: EMS 14:06 | DX: M79.89 Other specified soft tissue disorders (principal); M25.572 Pain in left ankle and joints of left foot; M25.571 Pain in right ankle and joints of right foot; M79.672 Pain in left foot; M79.671 Pain in right foot | CPT/HCPCS: A0425; A0429 ==

== ENCOUNTER 2023-07-27 14:28 | Emergency (ER) | payer MEDICARE, OTHER ==
[2023-07-27 14:42] VITALS: O2SAT 97
--- NOTE | 2023-07-27 14:43 | ED Physician Documentation ---
History of Present Illness - Stated complaint Stated Complaint: ANKLE PX - Chief complaint Chief Complaint: Ext Problem - Additonal information Additional information: 77-year-old female presents with bilateral foot and ankle pain. The patient denies any acute injury states she often has pain but typically gets better when she gets up in the morning and puts her legs over the edge of the bed. Today she had significant pain and was not even able to stand, she normally walks with a walker and could not even stand and pivot to her commode due to the pain. Pain is in both ankles, and into the feet. She states they feel warm but she h ad not noticed any new redness, no new swelling, denies any injuries, no increase in activity recently, no new shoes, she has not had any fever, chills, no calf pain, no other concerns today. She states she has been told in the past that she has gout and she was trying to adhere to a gout diet and feels like she has been doing well with that, does not drink alcohol, and she was placed on some sort of gout medication which she states has not helped at all. She cannot have anything touch her feet due to to the pain. As she was not able to stand, daughter called EMS for transport here. It appears the patient has been on colchicine for the last year that stopped a week ago because she did not feel like it was effective. Her PCP has been following for this. She states in the past she was on steroids but a 5-day course of prednisone apparently wrecked havoc on her glucose for several months and she does not want to be on it again. 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 : Nocturia, Frequency HEENT: None Psych: None Musculoskeletal: Osteoarthritis, Other Derm: Psoriasis - Past Surgical History Past Surgical History: Yes General: Other - Present Medications Home Medications: Ambulatory Orders Medication Instructions Recorded Confirmed methocarbamoL [Robaxin] 500 mg PO TID PRN #20 tablet 05/14/19 01/21/21 Empagliflozin [Jardiance] 1 tab PO DAILY 01/25/20 01/21/21 Gabapentin 2 cap PO BID 01/25/20 01/21/21 Insulin Aspart (Vial) [NovoLOG 8 - 14 unit SQ TIDWM 01/25/20 01/21/21 (VIAL FOR ED USE)] Metoprolol Succinate 1 tab PO DAILY 01/25/20 01/21/21 Montelukast [Singulair] 1 tab PO DAILY PM 01/25/20 01/21/21 Omeprazole 1 cap PO DAILY 01/25/20 01/21/21 Oxybutynin Chloride [Oxybutynin 1 tab PO DAILY 01/25/20 01/21/21 Chloride ER] Potassium Citrate [Potassium 2 tab PO DAILY 01/25/20 01/21/21 Citrate ER] Thyroid,Pork [[place]wood Thyroid] 1 tab PO DAILY 01/25/20 01/21/21 Torsemide 1 tab PO DAILY 01/25/20 01/21/21 Apixaban [Eliquis] 5 mg PO DAILY 03/24/20 01/21/21 Insulin Glargine [Lantus Solostar] 35 unit SUBQ BID 03/24/20 01/21/21 Risankizumab-Rzaa [Skyrizi] 150 mg IV MAINTENANCE.IV 01/21/21 traMADol [Ultram] 50 mg PO Q4-6H PRN #10 tablet 01/21/21 oxyCODONE [Roxicodone] 5 mg PO BID PRN 2 Days #10 tablet 02/06/22 Diclofenac Sodium 1% Gel [Voltaren 4 gm TOP QID PRN #1 each 02/07/23 Gel] HYDROcod/ACETAM 5/325 [Tyronza 5/325] 1 ea PO Q6H PRN #14 tablet 02/07/23 HYDROcod/ACETAM 5/325 [Tyronza 5/325] 1 - 2 tablet PO Q6H PRN #14 tablet 07/27/23 - Allergies Allergies/Adverse Reactions: Allergies Allergy/AdvReac Type Severity Reaction Status Date / Time azithromycin Allergy Rash Verified 02/07/23 13:31 glyburide Allergy Edema Verified 02/07/23 13:31 levofloxacin Allergy Hives Verified 02/07/23 13:31 lisinopril Allergy Respiratory Verified 02/07/23 13:31 losartan Allergy Hives Verified 02/07/23 13:31 metformin Allergy Cramps Verified 02/07/23 13:31 Sulfa (Sulfonamide Allergy Rash Verified 02/07/23 13:31 Antibiotics) triamcinolone Allergy Itching Verified 02/07/23 13:31 trimethoprim Allergy Rash Verified 02/07/23 13:31 yellow dye Allergy Rash Verified 02/07/23 13:31 - Social History Does the pt smoke?: No Smoking Status: Never smoker Does the pt drink ETOH?: No Does the pt have substance abuse?: No - Immunizations Immunizations are current?: Yes - POLST Patient has POLST: No PD ED PE NORMAL - General General: Alert and oriented X 3, No acute distress, Well developed/nourished - HEENT HEENT: Atraumatic, Moist mucous membranes - Cardiac Cardiac: RRR, No murmur - Respiratory Respiratory: No respiratory distress, Clear bilaterally - Derm Derm: Normal color, Warm and dry, Other (No erythema, rash or lesions on the ankles, there are some chronic) - Extremities Extremities: Other (No obvious deformity, trace ankle swelling bilaterally, generalized tenderness of both ankles, she is able to flex and extend. Toes extremely uncomfortable when the sheet touches them. No obvious foot injury.) Results - Vitals Vitals: Vital Signs - 24 hr 07/27/23 07/27/23 14:36 15:35 Temperature 36.6 C Heart Rate 66 84 Respiratory 18 14 Rate Blood Pressure 114/49 L 105/75 O2 Saturation 97 97 Oxygen O2 Source Room air - Labs Labs: Laboratory Tests 07/27/23 07/27/23 14:48 14:48 WBC 9.5 RBC 5.11 Hgb 15.5 Hct 47.9 H MCV 93.7 MCH 30.3 MCHC 32.4 RDW 13.0 Plt Count 191 MPV 10.7 Neut # (Auto) 6.4 Lymph # (Auto) 1.6 Bulloch # (Auto) 1.2 H Eos # (Auto) 0.1 Baso # (Auto) 0.0 Absolute Nucleated RBC 0.00 Nucleated RBC % 0.0 Sodium 138 Potassium 4.1 Chloride 98 L Carbon Dioxide 34 H Anion Gap 6.0 BUN 30 H Creatinine 1.3 Estimated GFR (MDRD) 40 L Glucose 170 H Uric Acid 8.4 H Calcium 9.5 C-Reactive Protein 0.7 H - Rads (name of study) No standard instances Relevant Findings:: Final report received PD Medical Decision Making - ED course Complexity details: reviewed old records, reviewed results, re-evaluated patient, considered differential, d/w patient, d/w family ED course: 77-year-old female presents with bilateral ankle and foot pain. This is acute on chronic issue, she has been dealing with reported gout for the last year or so and has tried different medications via her PCP feels like the pain is not getting better and in fact today it was so painful she could not get up that she presented the ER. On exam, patient does not have any erythema, no signs of acute infection, she is generally tender primarily on her toes and then in the ankle joint but has good range of motion. Bilateral ankle x-rays are unrevealing and her labs are generally stable, she has no leukocytosis, her BMP is stable, uric acid is somewhat elevated however this is nonspecific, her CRP is only 0.7. This may be secondary to gout versus neuropathic pain from her diabetes chronic arthritic changes. I discussed various options with patient given she does not want to be steroids, recommended 3 days of NSAIDs, 400 mg of ibuprofen twice a day and she can take as needed hydrocodone in between. She can follow-up with her PCP for long-term management of gout like symptoms, she may be candidate for allopurinol or another medication. At this time I do believe she stable for discharge home, the patient was given 1 mg of IM Dilaudid prior to discharge to help with ambulation home. She was cautioned on the potential side effects of these medications. Return precautions reviewed if any new or worsening symptoms. Departure - Departure Disposition: 01 Home, Self Care Clinical Impression: Ankle joint pain Qualifiers: Laterality: bilateral Qualified Code(s): M25.571 - Pain in right ankle and joints of right foot Condition: Good Instructions: ED Arthritis Gout Prescriptions: HYDROcod/ACETAM 5/325 [Tyronza 5/325] 1 - 2 tablet PO Q6H PRN #14 tablet PRN Reason: Pain Comments: Your labs today are generally stable, your uric acid is slightly high though This does not necessarily mean you are having a gout attack. Your physical exam is not consistent with a gout attack. Your x-ray is normal, and I suspect your pain is more likely due to peripheral neuropathy. I do recommend you still continue to adhere to a gout friendly diet and you can take anti-inflammatories for the next several days. I have given you a stronger pain medication, hydrocodone, to use only as needed. Please follow-up with your primary doctor for this issue. I am prescribing a short course of narcotic pain medication for you. These are potentially dangerous and addictive medications that should be used carefully. These medications may constipate you. Take an xqtl-kcx-niuteri stool softener (docusate) twice daily with plenty of water while taking these medications. If you go 24 hours without a bowel movement, take jley-vvs-wgcrfah miralax, per package instructions. Do not drink or drive while taking these medications. If you received narcotic or sedating medications while in the emergency department, do not drive for 24 hours. Store this medication in a safe, secure place and out of reach of children. It is a violation of federal law to give or sell this medication to another person or to use in a manner other than prescribed. The ED will not refill narcotic prescriptions, including prescriptions lost or stolen. To dispose of unwanted medications: 1. [facility] for medication in pill form only (no liquids) 8:00 am to 4:30 p.m. Sunday-Sunday in the lobby of the [facility], [address] [place] [address]. Empty pills into ziplock bag before disposal. Call [phone] for information. 2.[employer] is a free service available to all [facility] residents. Go to [email or web address] Note that many narcotic pain relievers also contain Tylenol/acetaminophen. Please ensure that your total dose of acetaminophen from all sources does not exceed 3 g (3000 mg) per day. Forms: PCP List
[2023-07-27 15:01] LABS: BASOPHILS % (AUTO) 0.4 %; EOSINOPHILS # (AUTO) 0.1 10^3/uL (0.0-0.7); EOSINOPHILS % (AUTO) 0.8 %; HCT - HEMATOCRIT 47.9 % (37.0-47.0); HGB - HEMOGLOBIN 15.5 g/dL (12.0-16.0); LYMPHOCYTES # (AUTO) 1.6 10^3/uL (1.5-3.5); LYMPHOCYTES % (AUTO) 17.2 %; MEAN CORPUSCULAR HEMOGLOBIN 30.3 pg (27.0-31.0); MEAN CORPUSCULAR HGB CONC 32.4 g/dL (32.0-36.0); MEAN CORPUSCULAR VOLUME 93.7 fL (81.0-99.0); MEAN PLATELET VOLUME 10.7 fL (7.9-10.8); MONOCYTES # (AUTO) 1.2 10^3/uL (0.0-1.0); NEUTROPHILS # (AUTO) 6.4 10^3/uL (1.5-6.6); NEUTROPHILS % (AUTO) 68.3 %; PLT - PLATELET COUNT 191 10^3/uL (130-450); RED BLOOD COUNT 5.11 10^6/uL (4.20-5.40); WHITE BLOOD COUNT 9.5 x10^3/uL (4.8-10.8)
[2023-07-27 15:23] LABS: CALCIUM 9.5 mg/dL (8.5-10.3); CREATININE 1.3 mg/dL (0.6-1.3); CRP - C-REACTIVE PROTEIN 0.7 mg/dL (<0.5); POTASSIUM 4.1 mmol/L (3.5-4.5); URIC ACID 8.4 mg/dL (2.3-6.6)
--- NOTE | 2023-07-27 15:25 | XRAY Report ---
PROCEDURE: Ankle 3+V BL INDICATIONS: pain TECHNIQUE: 6 views of the ankle were acquired. COMPARISON: None. FINDINGS: Bones: No fractures or dislocations. Ankle mortise is normally aligned on nonweightbearing view loni aterally. Healed fracture deformity of the right medial malleolus at No suspicious bony lesions. Soft tissues: No tibiotalar joint effusion. Achilles tendon appears normal. Diffuse subcutaneous e rufino bilaterally with scattered subcutaneous calcifications. Small plantar calcaneal enthesophytes bi laterally. IMPRESSION: No acute bony abnormality. Reviewed by: Damaso Peraza MD on 07/27/2023 3:24 PM PST Approved by: Damaso Peraza MD on 07/27/2023 3:24 PM PST Station ID: [id number]
[2023-07-27] MEDS ORDERED: HYDROmorphone 1 MG/ML CARPUJECT IM STA (15:49)
[2023-07-27] MEDS ORDERED: COLCHICINE 0.6 MG TABLET PO STA (16:43)
[2023-07-27] MEDS ORDERED: KETOROLAC 60 MG/2 ML VIAL IM STA (16:43)
--- NOTE | 2023-07-27 16:57 | ED Physician Documentation ---
ED Addendum - Addendum Addendum: 07/27/23 16:56 I was called into the room by the nurse. Briefly she has chronic bilateral foot pain worse in the morning. She stopped her colchicine about a week ago not sure if it was helping or not. Today she had much worse foot pain and ankle pain making her unable to even transfer. At baseline she walks with a walker but cannot go very far. On examination she does have exquisite pain with range of motion of either ankle but grossly they are normal-appearing without foot tenderness. She is good cap refill in the toes. I do agree with nurse practitioners diagnosis of likely gout in the ankles causing her exacerbation of pain. She had already received a milligram of Dilaudid on my evaluation and I will supplement with some Toradol and restart her colchicine. I do think the exacerbation is due to stopping the colchicine. She declined prednisone related to previous hyperglycemia with same, I do think at least a couple of days worth of NSAIDs is indicated although not longer given that she is anticoagulated. 07/27/23 17:38 On reexamination after the above she is ambulating back at her baseline and desires discharge home.
[2023-07-27 17:31] VITALS: BP 109/69
== END 2023-07-27 18:06 | disposition home or self-care (01) ==
LOC: EDUNIT# → ED 14:28
DX: M79.671 Pain in right foot (principal); M79.672 Pain in left foot; M25.572 Pain in left ankle and joints of left foot; M25.571 Pain in right ankle and joints of right foot; E10.9 Type 1 diabetes mellitus without complications; Z79.4 Long term (current) use of insulin; T50.4X6A Underdosing of drugs affecting uric acid metabolism, initial encounter; Z91.128 Patient's intentional underdosing of medication regimen for other reason; Z87.39 Personal history of other diseases of the musculoskeletal system and connective tissue; I48.91 Unspecified atrial fibrillation; Z79.01 Long term (current) use of anticoagulants
CPT/HCPCS: 36415; 73610; 80048; 84550; 85025; 86140; 96372; 99284; A9270; J1170

== ENCOUNTER 2023-09-25 13:52 | Outpatient (CLI) | payer MEDICARE, OTHER ==
[2023-09-25 18:22] LABS: BASOPHILS % (AUTO) 0.4 %; EOSINOPHILS # (AUTO) 0.1 10^3/uL (0.0-0.7); EOSINOPHILS % (AUTO) 1.8 %; HCT - HEMATOCRIT 49.1 % (37.0-47.0); HGB - HEMOGLOBIN 15.6 g/dL (12.0-16.0); LYMPHOCYTES # (AUTO) 2.8 10^3/uL (1.5-3.5); MEAN CORPUSCULAR HEMOGLOBIN 29.8 pg (27.0-31.0); MEAN CORPUSCULAR HGB CONC 31.8 g/dL (32.0-36.0); MEAN CORPUSCULAR VOLUME 93.7 fL (81.0-99.0); MEAN PLATELET VOLUME 12.1 fL (7.9-10.8); MONOCYTES # (AUTO) 1.1 10^3/uL (0.0-1.0); MONOCYTES % (AUTO) 14.3 %; NEUTROPHILS # (AUTO) 3.3 10^3/uL (1.5-6.6); NEUTROPHILS % (AUTO) 45.1 %; PLT - PLATELET COUNT 202 10^3/uL (130-450); RED BLOOD COUNT 5.24 10^6/uL (4.20-5.40); RED CELL DISTRIBUTION WIDTH 13.4 % (12.0-15.0); WHITE BLOOD COUNT 7.4 x10^3/uL (4.8-10.8)
[2023-09-25 18:37] LABS: BILIRUBIN,DIRECT 0.54 mg/dL (0.03-0.18); URIC ACID 10.4 mg/dL (2.3-6.6)
[2023-09-25 18:39] LABS: CREATININE,URINE 39.9 mg/dL; MICROALBUM/CREATININE RATIO,UR 20.1 ug/mg (<30.0); MICROALBUMIN,URINE 0.8 mg/dL
[2023-09-25 19:15] LABS: ALBUMIN 4.2 g/dL (3.2-5.5); ALBUMIN/GLOBULIN RATIO 1.1 (1.0-2.2); BILIRUBIN,TOTAL 3.1 mg/dL (0.2-1.0); CALCIUM 10.4 mg/dL (8.5-10.3); CREATININE 1.4 mg/dL (0.6-1.3); POTASSIUM 4.2 mmol/L (3.5-4.5); THYROID STIMULATING HORMONE 0.01 uIU/mL (0.34-5.60); TOTAL PROTEIN 7.9 g/dL (6.4-8.9)
[2023-09-25 21:45] LABS: ESTIMATED AVERAGE GLUCOSE 163 mg/dL (70-100); HEMOGLOBIN A1c% 7.3 % (4.27-6.07)
== END 2023-09-25 13:53 | disposition home or self-care (01) ==
LOC: LAB.N 13:52
PROVIDERS: ATTEND Family Medicine
DX: L30.9 Dermatitis, unspecified (principal); E11.8 Type 2 diabetes mellitus with unspecified complications; E11.40 Type 2 diabetes mellitus with diabetic neuropathy, unspecified; M10.9 Gout, unspecified; E03.9 Hypothyroidism, unspecified; Z79.4 Long term (current) use of insulin
CPT/HCPCS: 36415; 80053; 82043; 82248; 82570; 83036; 84439; 84443; 84481; 84550; 85025

== ENCOUNTER 2023-11-17 20:46 | Outpatient (CLI) | payer MEDICARE | END 2023-11-17 20:47 | disposition critical access hospital (66) | LOC: EMS 20:46 | DX: R09.A2 Foreign body sensation, throat (principal) | CPT/HCPCS: A0425; A0429 ==

== ENCOUNTER 2023-11-17 21:05 | Emergency (ER) | payer MEDICARE, OTHER ==
[2023-11-17 21:24] VITALS: BP 140/68
--- NOTE | 2023-11-17 21:34 | ED Physician Documentation ---
History of Present Illness - Stated complaint Stated Complaint: FB IN THROAT - Chief complaint Chief Complaint: Heent - Additonal information Additional information: 78-year-old female presents emergency department for foreign body sensation in her sternum area. Patient says that she has had this happen frequently and she has had multiple swallow studies and she feels like no one is able to really figure out what is causing the symptoms. Patient said she was eating and [place] at home swallowed a food bolus initially she felt it go very slowly down her esophagus and she feels like it is now in her mid sternum causing her pain and discomfort. This pain started immediately after eating chicken. Patient has no history of esophageal dilation and has not seen a GI doctor for this. Patient also reports while I am here I feel he can may be experiencing a gout flare to left foot. No recent fevers or chills foot is not hot to the touch. PD PAST MEDICAL HISTORY - Past Medical History Cardiovascular: Congestive heart failure, Hypertension, High cholesterol, Atrial fibrillation Respiratory: COPD Neuro: None Endocrine/Autoimmune: Type 1 diabetes GI: GERD OUTSIDE PARTS SALES: None : Nocturia, Frequency HEENT: None Psych: None Musculoskeletal: Osteoarthritis, Other Derm: Psoriasis - Past Surgical History Past Surgical History: Yes General: Other - Present Medications Home Medications: Ambulatory Orders Medication Instructions Recorded Confirmed Empagliflozin [Jardiance] 1 tab PO DAILY 01/25/20 11/17/23 Gabapentin 200 mg PO BID 01/25/20 11/17/23 Insulin Aspart (Vial) [NovoLOG See Rx Instructions .ROUTE .COMPLEX 01/25/20 11/17/23 (VIAL FOR ED USE)] Montelukast [Singulair] 10 tab PO DAILY PM 01/25/20 11/17/23 Oxybutynin Chloride [Oxybutynin 1 tab PO DAILY 01/25/20 11/17/23 Chloride ER] Potassium Citrate [Potassium 1 tab PO BID 01/25/20 11/17/23 Citrate ER] Thyroid,Pork [Bokoshe Thyroid] 150 mg PO DAILY 01/25/20 11/17/23 Apixaban [Eliquis] 5 mg PO BID 03/24/20 11/17/23 Insulin Glargine [Lantus Solostar] 30 - 35 unit SUBQ BID 03/24/20 11/17/23 Risankizumab-Rzaa [Skyrizi] 150 mg IV MAINTENANCE.IV 01/21/21 11/17/23 Diclofenac Sodium 1% Gel [Voltaren 4 gm TOP QID PRN #1 each 02/07/23 11/17/23 Gel] Colchicine [Colcrys] 0.6 mg PO DAILY #30 tablet 07/27/23 11/17/23 Albuterol Sulf [Ventolin Hfa 2 puffs INH Q4HR PRN 11/17/23 11/17/23 Inhaler] Atorvastatin [Lipitor] 10 mg PO QPM 11/17/23 11/17/23 Bumetanide 2 mg PO BID 11/17/23 11/17/23 Metoprolol Succinate [Toprol Xl] 50 mg PO DAILY 11/17/23 11/17/23 Potassium Chloride 20 mcg PO BID 11/17/23 11/17/23 Semaglutide [Ozempic] 1 mg SQ OAW 11/17/23 11/17/23 Spironolactone [Aldactone] 25 mg PO DAILY 11/17/23 11/17/23 Tiotropium [place] [Spiriva 1 inh INH DAILY 11/17/23 11/17/23 Handihaler] allopurinoL [Allopurinol] 1 tab PO DAILY 11/17/23 11/17/23 - Allergies Allergies/Adverse Reactions: Allergies Allergy/AdvReac Type Severity Reaction Status Date / Time azithromycin Allergy Rash Verified 11/17/23 21:12 glyburide Allergy Edema Verified 11/17/23 21:12 levofloxacin Allergy Hives Verified 11/17/23 21:12 lisinopril Allergy Respiratory Verified 11/17/23 21:12 losartan Allergy Hives Verified 11/17/23 21:12 metformin Allergy Cramps Verified 11/17/23 21:12 Sulfa (Sulfonamide Allergy Rash Verified 11/17/23 21:12 Antibiotics) triamcinolone Allergy Itching Verified 11/17/23 21:12 trimethoprim Allergy Rash Verified 11/17/23 21:12 yellow dye Allergy Rash Verified 11/17/23 21:12 doxycycline AdvReac Dizziness Verified 11/17/23 21:23 - Social History Does the pt smoke?: No Smoking Status: Never smoker Does the pt drink ETOH?: No Does the pt have substance abuse?: No - Immunizations Immunizations are current?: Yes - POLST Patient has POLST: No PD ED PE NORMAL - Vitals Vital signs reviewed: Yes - General General: Alert and oriented X 3, No acute distress, Other (Morbidly obese) - HEENT HEENT: Atraumatic, Moist mucous membranes, Pharynx benign - Neck Neck: Thyroid normal, Other (Trachea midline no wheezing with auscultation) - Cardiac Cardiac: RRR, No murmur, No gallop - Respiratory Respiratory: No respiratory distress, Clear bilaterally - Extremities Extremities: No calf tenderness / cord, Other (Bilateral lower extremity edema and swelling no erythema, Left volar foot quite tender with palpation flexion extension of the left ankle as well.) - Neuro Neuro: Alert and oriented X 3 Results - Vitals Vitals: Vital Signs - 24 hr 11/17/23 11/17/23 21:10 22:21 Temperature 37 C Heart Rate 69 65 Respiratory 16 16 Rate Blood Pressure 140/68 H O2 Saturation 98 95 Oxygen O2 Source Room air PD Medical Decision Making - ED course ED course: Patient is sitting upright breathing without any difficulty communicating without any difficulty no shortness of breath no nausea or vomiting. Patient was given GI cocktail and said that she immediately noticed alleviation in her symptoms she is denying any sternum pain or esophageal pain anymore. She was offered colchicine here in the emergency department because she originally told me that she was out at home she then says I think I actually do have colchicine and went to be taking at home today so did not need any additional colchicine here in the emergency department. She is also offered narcotics, pain medications for what she is describing as a gout flare but patient kindly declined and said that she would like to follow-up with her primary care provider for further evaluation of her gout flare and continue with gout diet. I do not believe that patient is experiencing any remaining food bolus remnants and she is breathing without difficulty speaking in full sentences her entire visit that she is here patient was told to follow-up with GI outpatient to get a referral from her primary care provider to consider a possible esophageal dilation given the symptoms have been recurrent and problematic for her. All questions have been answered with the patient and she is safe for discharge at this point in time. Departure - Departure Disposition: 01 Home, Self Care Clinical Impression: Choking due to food (regurgitated) Instructions: Dilation Esophageal Comments: Thank you for trusting us with your care. We have given you some lidocaine with Maalox to help with the discomfort that you are experiencing after having difficulty swallowing your meal tonight. It seems. This is working well. Please help with your primary care provider for your ongoing gout issues as well as your neuropathy to come up with a medication regimen that works to keep your gout and neuropathy symptoms at bay. Please also follow-up with your primary care provider for GI referral for possible esophageal dilation for further evaluation of why you are continuously choking on your food to see if maybe you are suffering from an esophageal stricture. Come back to the emergency department if you are experiencing any choking symptoms again, fevers or chills or worsening pain in your feet, or any other concerning symptoms. Wishing you speedy recovery. Forms: PCP List Discharge Date/Time: 11/17/23 22:24
[2023-11-17] MEDS: diphenhydrAMINE ELIXIR 25 MG/10 ML UDC PO STA (21:57)
[2023-11-17] MEDS: LIDOCAINE VISCOUS 2% 15 ML UDC MM STA (21:57)
[2023-11-17] MEDS: COLCHICINE 0.6 MG TABLET PO STA (21:57)
[2023-11-17] MEDS: MAG HYDROX/AL HYDROX/SIMETH 30 ML UDC PO STA (21:57)
[2023-11-17 22:30] VITALS: O2SAT 95
== END 2023-11-17 22:24 | disposition home or self-care (01) ==
LOC: EDUNIT# → ED 21:05
DX: T17.828A Food in other parts of respiratory tract causing other injury, initial encounter (principal); I10 Essential (primary) hypertension; I48.91 Unspecified atrial fibrillation; E10.9 Type 1 diabetes mellitus without complications; Z79.4 Long term (current) use of insulin; Z79.85 Long-term (current) use of injectable non-insulin antidiabetic drugs; R60.9 Edema, unspecified
CPT/HCPCS: 99283; A9270

== ENCOUNTER 2024-01-24 11:09 | Outpatient (CLI) | payer MEDICARE ==
[2024-01-24 18:21] LABS: BASOPHILS # (AUTO) 0.1 10^3/uL (0.0-0.1); BASOPHILS % (AUTO) 0.6 %; EOSINOPHILS # (AUTO) 0.1 10^3/uL (0.0-0.7); EOSINOPHILS % (AUTO) 1.5 %; HCT - HEMATOCRIT 47.8 % (37.0-47.0); HGB - HEMOGLOBIN 15.3 g/dL (12.0-16.0); LYMPHOCYTES # (AUTO) 2.5 10^3/uL (1.5-3.5); LYMPHOCYTES % (AUTO) 30.9 %; MEAN CORPUSCULAR HEMOGLOBIN 30.1 pg (27.0-31.0); MEAN CORPUSCULAR VOLUME 94.1 fL (81.0-99.0); MEAN PLATELET VOLUME 11.8 fL (7.9-10.8); MONOCYTES # (AUTO) 1.2 10^3/uL (0.0-1.0); MONOCYTES % (AUTO) 14.5 %; NEUTROPHILS # (AUTO) 4.2 10^3/uL (1.5-6.6); PLT - PLATELET COUNT 227 10^3/uL (130-450); RED BLOOD COUNT 5.08 10^6/uL (4.20-5.40); RED CELL DISTRIBUTION WIDTH 14.6 % (12.0-15.0); WHITE BLOOD COUNT 8.1 x10^3/uL (4.8-10.8)
[2024-01-24 18:22] LABS: ALBUMIN 4.1 g/dL (3.2-5.5)
[2024-01-24 18:27] LABS: CREATININE 1.4 mg/dL (0.6-1.3); POTASSIUM 3.9 mmol/L (3.5-4.5); URIC ACID 5.4 mg/dL (2.3-6.6)
[2024-01-24 18:27] LABS: BILIRUBIN,DIRECT 0.44 mg/dL (0.03-0.18); BILIRUBIN,TOTAL 2.4 mg/dL (0.2-1.0); TOTAL PROTEIN 7.6 g/dL (6.4-8.9)
[2024-01-24 18:46] LABS: THYROID STIMULATING HORMONE 0.02 uIU/mL (0.34-5.60)
[2024-01-24 22:18] LABS: ESTIMATED AVERAGE GLUCOSE 157 mg/dL (70-100); HEMOGLOBIN A1c% 7.1 % (4.27-6.07)
== END 2024-01-24 11:10 | disposition home or self-care (01) ==
LOC: LAB.N 11:09
PROVIDERS: ATTEND Physician Assistant Medical
DX: L30.9 Dermatitis, unspecified (principal); E11.8 Type 2 diabetes mellitus with unspecified complications; E11.40 Type 2 diabetes mellitus with diabetic neuropathy, unspecified; M10.9 Gout, unspecified; I27.20 Pulmonary hypertension, unspecified; I50.9 Heart failure, unspecified; E03.9 Hypothyroidism, unspecified; Z79.4 Long term (current) use of insulin
CPT/HCPCS: 36415; 80048; 80076; 81599; 83036; 84439; 84443; 84481; 84550; 85025

== ENCOUNTER 2024-02-22 08:00 | Outpatient (CLI) | payer MEDICARE ==
[2024-02-23 21:49] LABS: BACTERIAL VAGINOSIS DNA NEGATIVE (NEGATIVE); CANDIDA GLABRATA DNA NEGATIVE (NEGATIVE); CANDIDA GROUP DNA NEGATIVE (NEGATIVE); CANDIDA KRUSEI DNA NEGATIVE (NEGATIVE); TRICHOMONAS VAGINALIS DNA NEGATIVE (NEGATIVE)
== END 2024-02-22 23:59 | disposition home or self-care (01) ==
LOC: LAB.N 08:00
PROVIDERS: ATTEND Physician Assistant
DX: R30.0 Dysuria (principal)
CPT/HCPCS: 81514; 87077; 87086; 87181